=== PATIENT | female | born 1985 | race Caucasian/White ===

== ENCOUNTER 2021-03-23 12:59 | Emergency (ER) | payer OTHER, SELFPAY ==
[2021-03-23 13:09] VITALS: BP 110/76; PULSE 86; RESP 18; TEMP 36.7; O2SAT 98
--- NOTE | 2021-03-23 13:15 | DI.RAD_ITS ---
Exam(s) XR FINGER RT RING EXAM: XR FINGER RT RING CLINICAL HISTORY: slammed in car door TECHNIQUE: COMPARISON: No exams were available for comparison FINDINGS: Three views were obtained. There appears to be mild soft tissue swelling of the ring finger. No fra cture is identified. IMPRESSION: RADIATION DOSE DELIVERED: Total DLP
--- NOTE | 2021-03-23 13:15 | DI.RAD_ITS ---
Exam(s) XR TOE LT GREAT EXAM: XR TOE LT GREAT CLINICAL HISTORY: swollen and tender TECHNIQUE: COMPARISON: No exams were available for comparison FINDINGS: Three views were obtained. There appears to be soft tissue swelling of the great toe. No focal bony abnormality seen. No soft tissue calcification identified. IMPRESSION: RADIATION DOSE DELIVERED: Total DLP
--- NOTE | 2021-03-23 13:37 | ED.GENADUL_ITS ---
Discharge Plan Disposition Patient Disposition: HOME Condition: Good Discharge Details Clinical Impression: Cellulitis, Subungual hematoma Primary Care Provider: Yolanda,Local ED Provider: Kristina Dalal Home Meds and New Rx's Prescriptions: New cephalexin 500 mg capsule 500 mg PO Q6H 7 Days Qty: 28 RF: 0 Discharge Instructions Instructions: Cellulitis (ED), Hematoma (ED) Additional Instructions: Keep wound clean and dry SOAK several times a day in warm water Antibiotic until completed Return earlier if spreading redness, fever, worsening pain Discharge Data Discharge Date/Time-TO BE ENTERED AT DEPARTURE: 03/23/21 14:51 Medical Decision Making Patient appears well, afebrile nontoxic, wound care performed, dressing applied Unable to perform trephination as patient had 72 hours. Subungual hematoma No evidence of fracture on x-ray per radiology interpretation in my review Left great toe with laceration and surrounding erythema noted no crepitus sensation intact distally Medical Records Medical records reviewed: Yes I reviewed the patient's medical records. Lab Data Lab results reviewed: Yes I reviewed the patient's lab results. HPI General Mode of arrival: ambulatory . Date/Time Provider Initiated Documentation: 03/23/21 13:00 . Limitations to Documentation: no limitations . Information obtained by: patient . HPI Narrative: this 35-year-old female presents with right fourth digit pain. She slammed her finger in the car door on Friday of last week. She also has a laceration to her left great toe. She states this was acquired on Friday. She was walking up the day after swimming and accidentally caught her toe. She is here because the pain is worsened and she has some swelling. However despite wound care. She denies any fever or chills. She denies chance of . She denies any additional injuries. Related Data Home Medications Medication Instructions Recorded Confirmed cephalexin 500 mg PO Q6H 7 Days #28 cap 03/23/21 Previous Rx's Medication Instructions Recorded cephalexin 500 mg PO Q6H 7 Days #28 cap 03/23/21 Allergies Allergy/AdvReac Type Severity Reaction Status Date / Time amoxicillin Allergy Nausea Unverified 03/23/21 13:13 General Stated Complaint: Orthopedic JOESPH: 4 Review of Systems Narrative: Review of systems obtained x3 COUNTS INCLUDE 234 BEDS AT THE [facility] Medical History (Updated 03/23/21 @ 14:20 by SHARMAINE Doty) No active medical problems Surgical History (Updated 03/23/21 @ 13:13 by Kandace Johnson) No history of previous surgery Social History Smoking/Tobacco Use Status: Current every day Tobacco Type: cigarettes Smoking risk assessment performed?: Yes Alcohol Intake: current Alcohol Intake frequency: holidays/special occasions only Exam Const General: cooperative, healthy appearing and comfortable Extrem Other: Right fourth digit with subungual hematoma, swelling, tenderness, brisk capillary refill, sensation intact Left great toe with laceration, surrounding erythema and induration, no purulent drainage, no crepitus, no lymphangitis Capillary refill intact, sensation intact distally Course Vital Signs Vital signs: Vital Signs Temperature 36.7 C 03/23/21 13:09 Pulse 86 03/23/21 13:09 Respiratory Rate 18 03/23/21 13:09 Blood Pressure 110/76 03/23/21 13:09 Pulse Oximetry 98 03/23/21 13:09 Temperature 36.7 C 03/23/21 13:09 Temperature Source Skin 03/23/21 13:09 Pulse 86 03/23/21 13:09 Respiratory Rate 18 03/23/21 13:09 Respiratory Effort Non-Labored 03/23/21 13:13 Blood Pressure 110/76 03/23/21 13:09 Blood Pressure Position Sitting 03/23/21 13:09 Pulse Oximetry 98 03/23/21 13:09 Oxygen Delivery Method Room Air 03/23/21 13:09 Oxygen Flow Rate 0 03/23/21 13:09 Pain Level 0 03/23/21 13:09
== END 2021-03-23 14:51 | disposition home or self-care (01) ==
PROVIDERS: Emergency Provider Physician Assistant
DX: S67.194A Crushing injury of right ring finger, initial encounter (principal); S60.141A Contusion of right ring finger with damage to nail, initial encounter; W23.1XXA Caught, crushed, jammed, or pinched between stationary objects, initial encounter; L03.032 Cellulitis of left toe; S91.112A Laceration without foreign body of left great toe without damage to nail, initial encounter; X58.XXXA Exposure to other specified factors, initial encounter
CPT/HCPCS: 81025; 90471; 99284; 73140; 73660

== ENCOUNTER 2021-08-16 17:29 | Emergency (ER) | payer MEDICAID, SELFPAY ==
[2021-08-16 17:33] VITALS: BP 131/83; PULSE 89; RESP 18; TEMP 36.7; O2SAT 98
--- NOTE | 2021-08-16 17:43 | W.ED.GENAD ---
Discharge Plan Disposition Patient Disposition: HOME Condition: Stable Discharge Details Clinical Impression: Myofascial pain syndrome Primary Care Provider: Yolanda,Local ED Provider: Georgiana Luque Home Meds and New Rx's Prescriptions: Continued methocarbamol 500 mg Tablet 500 mg PO Q8-10H PRNRF: 0 Women's One Daily 18 mg iron-400 mcg-500 mg Ca Tablet 1 tab PO DAILY RF: 0 Discharge Instructions Instructions: Musculoskeletal Pain (ED) Additional Instructions: continue to ice and use pain medication as directed Referrals: Oswaldo Lam MD [ [facility] STAFF PHYSICIAN] - (call in am for follow up appointment) Medical Decision Making patient presents with c/o exacerbated chronic pain, seeking steroid injection. no trauma, rash or deformity noted. vitals stable. no imaging indicated, circulation intact with good pulses distally and color. will refer to orthopedics for further management. continue previous plan of care for pain management, no new prescriptions given HPI General Mode of arrival: ambulatory. Date/Time Provider Initiated Documentation: 08/16/21 17:31. Limitations to Documentation: no limitations. Information obtained by: patient. HPI Narrative: patient presents with c/o left shoulder myofascial pain syndrome. she reports she typically received cortisone injections but has moved from [place] and does not have access to her provider. she last took methocarbamol at noon and has been icing. denies any trauma, no numbness or tingling distally, good pulses and sensation. reports 3 trigger points. Related Data Home Medications Medication Instructions Recorded Confirmed Women's One Daily 1 tab PO DAILY 08/16/21 08/16/21 methocarbamol 500 mg PO Q8-10H PRN 08/16/21 08/16/21 Allergies Allergy/AdvReac Type Severity Reaction Status Date / Time amoxicillin Allergy Nausea Unverified 08/16/21 17:36 General Stated Complaint: Orthopedic JOESPH: 4 Review of Systems All systems reviewed & are unremarkable except as noted in HPI and below Musculoskeletal Musculoskeletal: Denies deformity and Reports arthralgias (right shoulder) Integumentary/Breasts Skin/Breast: Denies rash and Denies sores PFSH All Active Problems (Updated 08/16/21 @ 17:49 by Georgiana Luque, [employer]) Cellulitis (Acute) Subungual hematoma (Acute) Myofascial pain syndrome (Acute) Medical History (Updated 08/16/21 @ 17:49 by Georgiana Luque NP) No active medical problems Surgical History (Updated 03/23/21 @ 13:13 by Kandace Johnson) No history of previous surgery Social History Smoking/Tobacco Use Status: Current every day Tobacco Type: cigarettes Smoking risk assessment performed?: Yes Alcohol Intake: current Alcohol Intake frequency: holidays/special occasions only Drug use: Never Substance use type: does not use Do you feel safe at home: Yes Do you feel safe in your relationship?: Yes Exam Const General: cooperative, healthy appearing, comfortable and no acute distress Nutritional Appearance: average body habitus Orientation: alert, awake and oriented x3 HENMT Head: normal to inspection, normocephalic and atraumatic Extrem General: normal to inspection Right upper extremity: normal to inspection and full ROM Left upper extremity: normal to inspection and full ROM (passive with pain, holding arm at side with support of forearm) Course Vital Signs Vital signs: Vital Signs Temperature 36.7 C 08/16/21 17:33 Pulse 89 08/16/21 17:33 Respiratory Rate 18 08/16/21 17:33 Blood Pressure 131/83 08/16/21 17:33 Pulse Oximetry 98 08/16/21 17:33 Temperature 36.7 C 08/16/21 17:33 Temperature Source Temporal Artery Scan 08/16/21 17:33 Pulse 89 08/16/21 17:33 Respiratory Rate 18 08/16/21 17:33 Respiratory Effort Non-Labored 08/16/21 17:38 Blood Pressure 131/83 08/16/21 17:33 Blood Pressure Position Sitting 08/16/21 17:33 Pulse Oximetry 98 08/16/21 17:33 Oxygen Delivery Method Room Air 08/16/21 17:33 Oxygen Flow Rate 0 08/16/21 17:33 PAWSS Have you Been Recently Intoxicated or Drunk Within the Last 30 days?: No Have you Ever Experienced Previous Episodes of Alcohol Withdrawal?: No Have you ever Experienced Withdrawal Seizures?: No Have you ever Experienced Delirium Tremens(DT)s?: No Have you ever Experienced Blackouts?: No Have you ever Combined Alcohol with other Downers within the last 90 days?: No Have you ever Combined Alcohol with any other Substance of Abuse during the last 90 days?: No Positive Blood Alcohol level on Presentation? [PCS.BAL]: No Evidence of Increased Autonomic Activity (i.e. HR>120, tremor, sweating, agitation, nausea)?: No Result: 0
== END 2021-08-16 18:05 | disposition home or self-care (01) ==
PROVIDERS: Emergency Provider Nurse Practitioner Acute Care; Visit Provider Nurse Practitioner Acute Care
DX: M79.18 Myalgia, other site (principal); M25.512 Pain in left shoulder
CPT/HCPCS: 99281; 99282

== ENCOUNTER 2021-10-25 09:46 | Outpatient (REF) | payer MEDICAID, SELFPAY ==
[2021-10-26 15:44] LABS: COVID-19 RT-PCR UVMMC Result Negative (Negative)
== END 2021-10-25 09:47 | disposition home or self-care (01) ==
LOC: LBN 09:46
PROVIDERS: Visit Provider Physician Assistant
DX: Z20.822 Contact with and (suspected) exposure to COVID-19 (principal)
CPT/HCPCS: U0003

== ENCOUNTER 2022-03-12 01:56 | Outpatient (CLI) | payer MEDICAID, SELFPAY ==
[2022-03-12 12:37] LABS: Hemoglobin A1C 5.4 % (<5.7)
[2022-03-12 12:46] LABS: Calculated LDL 144 mg/dL (<100); Cholesterol 223 mg/dL (<200); HDL Cholesterol 38 mg/dL (40-60); TSH (W/Ref FT4) 2.36 uIU/mL (0.36-3.74); Triglyceride 205 mg/dL (<150)
== END 2022-03-12 01:57 | disposition home or self-care (01) ==
LOC: LOS 01:56
PROVIDERS: PCP Nurse Practitioner Family; Visit Provider Nurse Practitioner Family
DX: R63.5 Abnormal weight gain (principal); Z13.1 Encounter for screening for diabetes mellitus; Z13.220 Encounter for screening for lipoid disorders
CPT/HCPCS: 80061; 83036; 84443

== ENCOUNTER → 2022-04-02 00:52 | Outpatient (CLI) | payer MEDICAID, SELFPAY ==
--- NOTE | 2022-04-02 07:00 | DI.MRI_ITS ---
Exam(s) MR UPPER JOINT LT WO EXAM: MR UPPER JOINT LT WO CLINICAL HISTORY: left shoulder pain, not improved with PT,M25.512. TECHNIQUE: Multiplanar multisequence MRI was performed. COMPARISON: No exams were available for comparison FINDINGS: BONES: There is no fracture or contusion pattern. JOINTS: The acromioclavicular joint is normal. The glenohumeral joint is normal. TENDONS: Supraspinatus: There is thickening and intermediate signal in the supraspinatus tendon consistent wit h tendinosis. No evidence of tear is seen. Infraspinatus: Unremarkable. Subscapularis: Unremarkable. [place]: Unremarkable. Biceps and [place]: Unremarkable. MUSCLES: Unremarkable. GLENOID LABRUM: Unremarkable on this noncontrast examination. SOFT TISSUES: Unremarkable. LIGAMENTS: Unremarkable. OTHER: Subacromial and subdeltoid bursae are unremarkable. IMPRESSION: Supraspinatus tendinosis. No evidence of a rotator cuff tear. DATA REPOSITORY:
== END ==
PROVIDERS: PCP Nurse Practitioner Family; Visit Provider Family Medicine
DX: M25.512 Pain in left shoulder (principal); M65.812 Other synovitis and tenosynovitis, left shoulder
CPT/HCPCS: 73221

== ENCOUNTER 2022-04-09 09:51 | Outpatient (CLI) | payer MEDICAID, SELFPAY ==
--- NOTE | 2022-04-09 09:45 | DI.RAD_ITS ---
Exam(s) XR SHOULDER LT COMPLETE 2+V EXAM: XR SHOULDER LT COMPLETE 2+V CLINICAL HISTORY: LEFT SHOULDER PAIN. TECHNIQUE: 2D digital imaging was performed. Two views. COMPARISON: No exams were available for comparison FINDINGS: BONES: No acute fracture is present. No bony destructive lesion is seen. JOINTS: No dislocation present. SOFT TISSUE: Normal. IMPRESSION: Unremarkable radiographs of the left shoulder. DATA REPOSITORY: RADIATION DOSE DELIVERED:
== END 2022-04-09 09:52 | disposition home or self-care (01) ==
LOC: DIORS 09:51
PROVIDERS: PCP Nurse Practitioner Family; Referring Provider Nurse Practitioner Family; Visit Provider Student in an Organized Health Care Education/Training Program
DX: M25.512 Pain in left shoulder (principal)
CPT/HCPCS: 73030

== ENCOUNTER 2022-05-17 07:25 | Day surgery (SDC) | payer MEDICAID, SELFPAY ==
[2022-05-17] VITALS (9 sets, daily range): BP systolic 84–112; BP diastolic 59–83; PULSE 57–77; RESP 16–24; TEMP 36.4–36.7; O2SAT 94–98; BMI 29.8
--- NOTE | 2022-05-17 07:25 | W.ANESPRE ---
General Info Date of Service Date Performed: 05/17/22 Height: 5 ft 4 in Weight: 78.925 kg Body Mass Index (BMI): 29.8 Surgical Procedure: Operation Date: 05/17/22 09:10 Proposed Procedure Side Surgeon p Shoulder Arthroscopy w/Extensive Debridement, Biceps Tenodesis, Subacromial Decompression & Labral Repair Left Oswaldo Lam MD Meds Allergies and Home Medications Allergies Allergy/AdvReac Type Severity Reaction Status Date / Time amoxicillin Allergy Nausea Unverified 05/17/22 07:41 Home Medication Medication Instructions Recorded multivit-iron 18 mg-folic acid 400 1 tab PO DAILY 08/16/21 mcg-calcium 500 mg-minerals tablet (Women's One Daily) nicotine (polacrilex) 4 mg buccal 4 mg buccal Q4H PRN 02/19/22 lozenge (Nicorette) aspirin 81 mg tablet,delayed 81 mg PO DAILY Prevent blood clot 05/17/22 release 14 days #14 tabs naproxen 250 mg tablet 250 - 500 mg PO BID PRN #40 tabs 05/17/22 oxycodone 5 mg tablet 5 - 10 mg PO Q4H PRN moderate to 05/17/22 severe pain #18 tabs Current Visit Medications: Current Medications Generic Name Dose Route Start Last Admin Trade Name Freq PRN Reason Stop Dose Admin Ringer's Solution 1,000 mls @ 30 mls/hr 05/17/22 06:00 IV 05/17/22 16:00 INFUSION LUIS ALBERTO Cefazolin Sodium/Dextrose 2 gm in 50 mls @ 100 mls/hr 05/17/22 06:00 Ancef Duplex IVPB 05/17/22 23:59 PREOP LUIS ALBERTO IV Miscellaneous Supplies 1 each 05/17/22 06:00 Iv Access IV 05/17/22 23:59 DIRECTED LUIS ALBERTO Sodium Chloride 0 ml 05/17/22 06:00 Normal Saline Flush 10 Ml Syr IV 05/17/22 23:59 PRN PRN Sodium Chloride 0 ml 05/17/22 06:00 Normal Saline 10 Ml Vial IJ 05/17/22 23:59 DIRECTED PRN Sterile Water 0 ml 05/17/22 06:00 Water,Injection,Sterile 10 Ml Vial IJ 05/17/22 23:59 DIRECTED PRN PFSH Active Problems Active Problems: Problem Status Onset Code Chronic obstructive lung disease J44.9 Chronic fatigue syndrome R53.82 Insomnia disorder G47.00 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 Tobacco user Z72.0 Anxiety F41.9 Weight gain R63.5 Left shoulder pain M25.512 Dislocation of left shoulder joint S43.005A Myofascial pain syndrome M79.18 Superior labrum wsmblqov-li-mnzobrnem (SLAP) tear of left shoulder S43.432A Bursitis of left shoulder M75.52 Medical History Medical History (Updated 05/17/22 @ 07:39 by Rhina Gabriel) COVID-19 Idiopathic hypersomnia Loss of teeth due to extraction 2017 Surgical History Surgical History No history of previous surgery Tobacco Smoking/Tobacco Use Status: Current every day Tobacco Type: cigarettes Passive smoking exposure: Yes Second hand exposure: Yes Alcohol Alcohol Intake: current Alcohol intake frequency: a few times a month Alcohol type: beer, wine and hard liquor Substance Use Substance use: Occasionally Substance use type: marijuana Vital Signs and Lab Results Vital Signs Most Recent Vital Signs in EMR: Temp Pulse Resp BP Pulse Ox 36.7 C 74 16 108/74 98 05/17/22 07:42 05/17/22 07:42 05/17/22 07:42 05/17/22 07:42 05/17/22 07:42 Lab Results Blood Type / Crossmatch: No Data to Display Complete Blood Count: No Data to Display Complete Metabolic Panel: No Data to Display Liver Function Panel: No Data to Display Coagulation Panel: No Data to Display Cardiac Panel: No Data to Display Arterial Blood Gas: No Data to Display Venous Blood Gas: No Data to Display Pancreas Panel: No Data to Display Thyroid Panel: No Data to Display Infectious Disease: No Data to Display Blood Cultures: No Data to Display Toxicology Panel: No Data to Display Panel: No Data to Display Anesthesia Assessment and Plan Anesthesia History Personal History: No History of Anesthesia Complications Family History: No Family History of Anesthesia Complications Exercise Tolerance Exercise Tolerance: Metabolic Equivalents>4 Cardiac & Pulmonary Exam Cardiac Exam: Normal S1/S2 Heart Sounds Pulmonary Exam: Clear Bilateral Breath Sounds Implantable Cardiac Device Does patient have a Pacemaker or an ICD?: No Airway Exam Known Difficult Airway: No Mallampati Class: 4 Mouth Opening: Narrow (< 3cm) Thyromental Distance: Less than 3 cm Neck Range of Motion: Full ROM Neck Circumference: Normal Teeth Condition: Edentulous ASA Classification ASA Score: ASA 2 Emergency Case?: No NPO Status NPO Status: NPO Clears >2 hours, Solids >8 hours Status Status: Negative HCG Anesthesia Plan Resuscitation Status: Full Code Anesthesia Technique: General Anesthesia Airway Planned: Endotracheal Tube Pain Management: Surgeon and patient request nerve block Monitors Used: Standard Monitors Preoperative Comments:: 36 yo female for shoulder scope. Sig PMHx: COPD, smoker (cannabis/tobacco), occ EtOH, anxiety, idiopathic hypersomnia, discussed risks benifits of GA/ETT with left side interscalene block. Discussed risk of nerve injury (perm and temporary), she is willing to proceed.
[2022-05-17] MEDS: Lactated Ringers 1,000 ML 30 ML IV (10:25)
[2022-05-17] MEDS: ceFAZolin 2 GM/50 ML BAG IVPB (10:54)
--- NOTE | 2022-05-17 11:00 | W.PM.OP ---
Date of service: 05/17/22 Time of Service: 13:03 Operative Note Operative Note DATE OF PROCEDURE: 05/17/22 PRE-OP DIAGNOSIS: Left shoulder: 1. Labral tear 2. LHB tendinopathy 3. Bursitis 4. Rotator cuff tendinitis POST-OP DIAGNOSIS: same Left shoulder: 1. Labral tear 2. LHB tendinopathy with type 1 SLAP tear 3. Bursitis 4. Rotator cuff tendinitis with mild partial articular rotator cuff tearing PROCEDURE: Left shoulder: 1. Arthroscopic stabilization with labral repair, CPT# 52224: This involved arthroscopically suturing and reattaching the anterior inferior labrum to the glenoid rim 2. Arthroscopic biceps tenodesis, CPT# 29701. This involved arthroscopically suturing and reattaching the long head of the biceps tendon to the proximal humerus at the superior margin of the bicipital groove with a screw at the correct tension. 3. Extensive debridement, CPT# 75826. This involved using arthroscopic hand instruments, power instruments, and radiofrequency instruments to release the long head of the biceps tendon and debride areas of labral tearing, SLAP tear, synovitis, partial articular supraspinatus tearing, and chondromalacia about the anterior and inferior glenoid working within the glenohumeral joint anteriorly, superiorly and posteriorly. 4. Subacromial decompression, CPT# 07914. This involved using arthroscopic power instruments and a radiofrequency wand to complete a bursectomy. The assistant infant toddler teacher was medically required in order to help assist in techniques above, which require positioning the arm, holding the arthroscope, and manipulating multiple instruments and sutures at the same time. This cannot be done without the help of an experienced assistant infant toddler teacher. SURGEON: Oswaldo Lam CLINICAL TRANSPLANT COORDINATOR: Larisa Pollard ANESTHESIA TYPE: General LMA/ETT and Primary Nerve Block Refer to Anesthesia Record ESTIMATED BLOOD LOSS: 10 PATHOLOGY: none sent COMPLICATIONS: None Patient was transported to: PACU Patient's condition: stable Implants: Arthrex: 4.75mm SwiveLock x 1 and 2.9mm PushLock x 1 Indications: The patient was diagnosed with the above conditions and appropriately indicated for surgical intervention. Please see complete medical record for details. Findings: Exam under anesthesia: Moderately increased anterior glenohumeral translation without dislocation. No significant sulcus sign. Negative posterior instability. Full range of motion. Glenohumeral joint: Moderate rotator interval anterior and superior synovitis. Deficient anterior inferior labrum without associated glenoid chondral or bone loss. No significantly redundant anterior or inferior axillary capsular pouch. Mild partial articular supraspinatus rotator cuff tearing. Mild long head biceps injection bicipital groove. Type I biceps anchor superior labrum SLAP tear fraying. No posterior labral tear. Subacromial space: Moderate bursitis. Diffuse supraspinatus superficial bursal fraying without high-grade tearing. No significant undersurface acromial bone spur. Procedure Description: In the operating room, general anesthesia was induced. Bilateral shoulders were examined. The patient was positioned in the beachchair position. All bony prominences were well-padded. Preoperative antibiotics were administered. The shoulder was prepped and draped in the usual sterile fashion. The correct patient, procedure, and side of the procedure were all verified prior to incision. Starting through the posterior portal a standard complete diagnostic arthroscopy was performed of the glenohumeral joint including inspection of the long head of the biceps, anterior and superior labrum, subscapularis tendon, supraspinatus and infraspinatus tendons, and axillary recess. The glenoid and humeral head cartilage as well as the posterior labrum were inspected from an anterior viewing portal. Significant findings and interventions noted above including mild debrided with a radiofrequency ablator and mechanical shaver of partial articular rotator cuff tearing, superior labral SLAP tear fraying, rotator interval anterior and superior synovitis, and mild chondromalacia and redundant frayed tissue of the anterior and anterior-inferior labrum. Rigid cannula was inserted of the usual anterior portal localizing biceps tendon. An all-arthroscopic suprapectoral biceps tenodesis was performed through an anterior portal using a Loop N Tack method with a SutureTape FiberLink cinched around and through the tendon. The biceps was tenotomized from the labrum and fixated with a suture anchor at the superior margin of the bicipital groove. The safety stitch #2 FiberWire was then passed around the tendon stump, which was further secured with knotless [facility] arthroscopic knot. A second rigid cannula was inserted anterior inferiorly just above the subscapularis tarting the anterior-inferior glenoid. The the abnormal and deficient anteroinferior labral tissue was mobilized from the glenoid rim, which was prepared using rasp and curettes removing minimal bone but optimizing prepared surface for healing. The 45 degree to the right lasso was used through the low anterior cannula to incorporate appropriate amounts of AIG HL, capsule, and labral tissue and shuttle a suture tape FiberLink, which was secured with a luggage tag configuration. The eccentric guide was then used to drill for the push lock anchor at the appropriate level and margin of the glenoid. The repair suture was loaded on the anchor eyelet, which was successfully deployed with excellent fixation strength and evangelical of anterior inferior soft tissues for stability. Starting through the posterior portal, the arthroscope was directed into the subacromial space. A lateral 50 yard line lateral portal was omitted. A combination of power instruments and a radiofrequency ablator were used to debride bursitis anteriorly, posteriorly, and laterally. There was no undersurface acromial bone spurring for acromioplasty. The coracoacromial ligament was preserved. The bursectomy was completed viewing anteriorly and working from posteriorly and the rotator cuff was thoroughly inspected without any high?grade tearing. The shoulder was drained of arthroscopic fluid. All portal sites were copiously irrigated. These incisions were closed using 3-0 Monocryl in a buried fashion and then covered with Mastisol, Steri-Strips, Xeroform, dry gauze, and ABDs. The dressings were covered and secured with Medipore tape. The operative extremity was placed into a sling for immobilization. The patient awoke from anesthesia without complication and was transferred to the recovery room in a stable condition.
--- NOTE | 2022-05-17 11:18 | W.ANESNERVE ---
Nerve Block Single Injection Procedure Date and Time Date Performed: 05/17/22 Procedure Start: 10:41 Location Where Procedure Performed Procedure Location: Day Surgery Unit Reason Performed: Postoperative Analgesia Requesting Provider: Oswaldo Lam Timeout Performed Timeout Performed: Yes Monitoring Used ECG, Blood Pressure and SpO2 Sterility Sterility: Hand Hygiene, Surgical Cap, Surgical Mask, Sterile Gloves and Chlorhexidine Sedation Given During Procedure Sedation Given (Indicate Dose Given): Versed IV Dose:: 2 mg Patient Mental Status Patient Mental Status: Sedate with meaningful communication Nerve Block 1st Nerve Block: Laterality: Left Block Type: Interscalene Needle / Catheter Used: 100mm SonoPlex II Local Anesthetic Bolus (Indicate Dose Given): Lidocaine used for local infiltration of skin, Injected in 3-5ml increments after negative blood aspiration, Bupivacaine 0.5% Dose:: 14 mL and Exparel Dose:: 10 mL Additives (Indicate Dose Given): None Ultrasound: Sterile probe cover and gel used Ultrasound Image Saved?: Yes Nerve Stimulator: Supplement to Ultrasound use and No twitch or parasthesia noted < 0.5 mA (per pt, brief twitch in hand, needle reposited with resolution prior to injection. ) Paresthesia: None Procedure Tolerated: No Complications Procedure Outcome: Successful Performed By: Moises Leija
[2022-05-17] MEDS: EPINEPHrine 30 MG/30 ML VIAL (11:47)
--- NOTE | 2022-05-17 12:48 | W.PM.DSUDISC ---
Date of service: 05/17/22 Time of Service: 12:48 Discharge Plan Disposition Patient Disposition: HOME Condition: Good Discharge Details Reason For Visit: Left shoulder surgery Attending Provider: Oswaldo Lam Primary Care Provider: Chris Merritt Home Meds and New Rx's Prescriptions: New aspirin 81 mg tablet,delayed release (DR/EC) 81 mg PO DAILY 14 Days Qty: 14 0RF naproxen 250 mg tablet 250 - 500 mg PO BID PRNQty: 40 0RF Rx Instructions: take with a meal oxycodone 5 mg tablet 5 - 10 mg PO Q4H MDD 30 mg PRN (Reason: moderate to severe pain) Qty: 18 0RF Continued nicotine (polacrilex) [Nicorette] 4 mg lozenge 4 mg buccal Q4H PRN Women's One Daily 18 mg iron-400 mcg-500 mg Ca Tablet 1 tab PO DAILY Discharge Instructions Additional Instructions: Surgery: Left shoulder arthroscopy with labral repair, biceps tenodesis, extensive debridement, and subacromial decompression. Activity: For 6 weeks, you should keep your arm at your side in a neutral position at all times except for physical therapy. Do not try to lift or raise your arm using your own muscles. Avoid any weighted elbow flexion or resisted supination for 6 weeks. You should use the sling whenever you are out of the house. You may have to adjust the abduction pillow or remove it for comfort. At home it is best to remove the sling and rest the arm on a pillow at your side or support the operative side with your other hand. You may allow the arm to dangle at your side. A physical therapy prescription will be sent electronically to begin in about 3 weeks. Protocol- Weeks 0?3: Maximum 0 degrees external rotation and 90 degrees forward elevation Weeks 3?6: Maximum 30 degrees external rotation and 120 degrees forward elevation Weeks 6+: Gradually progress to full ROM Weeks 10+: Start dynamic scapular stabilization and rotator cuff strengthening Prescriptions: Aspirin 81 mg take 1 daily to prevent a blood clot for 2 weeks Naproxen 250 mg take 1-2 every 12 hours with a meal as needed for moderate pain Oxycodone 5 mg take 1-2 every 4-6 hours as needed for severe pain You may use phfe-iqd-axdwmbx Tylenol (acetaminophen) as needed for mild pain. These pain medications may be taken all at once or in different combinations as needed. Also, recommend Colace (docusate) as a stool softener as surgery and pain medicine cause constipation. You may try phkg-pgc-jnwikhf diphenhydramine (Benadryl) 25-50 mg nightly as a sleep aid Dressings: Remove shoulder bandage after 3 days. Leave the sticky Steri-Strips in place until they fall off or remove them after you shower. Cover the incisions with Band-Aids or leave them open to air. You may shower after 5 days. Follow-up: 10-[address] Lam You may take off the leg compression stockings this evening at home. You may also leave them on a few days longer if you have a history of leg swelling or edema. Let us know right away if you develop any redness, drainage, fevers, chest pain, or trouble breathing. Do not drink alcohol or drive for at least 24 hours after anesthesia. Please call the office during business hours with any questions or concerns.
--- NOTE | 2022-05-17 13:15 | W.ANESPOSTOP ---
Postoperative Evaluation Date, Time and Location Date Performed: 05/17/22 Time Performed: 13:16 Patient Location: Day Surgery Unit Vital Signs Most Recent Imported Vital Signs: Most Recent Vital Signs Temp Pulse Resp BP Pulse Ox 36.4 C L 70 24 92/70 L 97 05/17/22 13:06 05/17/22 13:06 05/17/22 13:06 05/17/22 13:06 05/17/22 13:06 Pain Score Most Recent Pain Score: Most Recent Pain Score Pain Level 0 05/17/22 10:25 Assessment Mental Status: Awake (Alert & Oriented to Patient Baseline) Airway and Respiratory Function: Patent airway with normal (patient baseline) respiratory exam Cardiovascular Function: Hemodynamically Stable Hydration Status: Adequately Hydrated Nausea & Vomiting: No Nausea or Vomiting Pain: Pain is tolerable per patient Peripheral Nerve Block: Regional nerve block not resolved at time of post operative discharge
== END 2022-05-17 14:28 | disposition home or self-care (01) ==
PROVIDERS: PCP Nurse Practitioner Family; Visit Provider Student in an Organized Health Care Education/Training Program
PROC: (CPT 29805; principal; 2022-05-17 09:00)
DX: S43.432A Superior glenoid labrum lesion of left shoulder, initial encounter (principal); M79.18 Myalgia, other site; F17.210 Nicotine dependence, cigarettes, uncomplicated; J44.9 Chronic obstructive pulmonary disease, unspecified; X58.XXXA Exposure to other specified factors, initial encounter
CPT/HCPCS: 29806; 29828; 29826; 29823; 76942; 81025; J0690; J1100; J1885; J2250; J2370; J2405; J2704

== ENCOUNTER 2022-06-28 11:26 | Emergency (ER) | payer MEDICAID, SELFPAY ==
[2022-06-28 11:32] VITALS: BP 106/80; PULSE 78; RESP 18; TEMP 36.7; O2SAT 99
[2022-06-28 12:16] VITALS: BP 106/73; PULSE 74; TEMP 36.4; O2SAT 99
--- NOTE | 2022-06-28 13:30 | DI.US_ITS ---
Exam(s) US UPPER EXTREMITY VENOUS LT EXAM: US UPPER EXTREMITY VENOUS LT CLINICAL HISTORY: pain/swelling. TECHNIQUE: Ultrasound examination of the left upper extremity venous system(s) is performed using gr ayscale, color-flow, and spectral Doppler analysis. COMPARISON: No exams were available for comparison FINDINGS: The left internal jugular, axillary, subclavian, cephalic, basilic, brachial, radial, and ulnar veins are patent without evidence of thrombosis. IMPRESSION: No DVT. DATA REPOSITORY:
--- NOTE | 2022-06-28 13:46 | W.ED.GENAD ---
Discharge Plan Discharge Details Chief Complaint: Orthopedic Primary Care Provider: Chris Merritt ED Provider: John Paul Vega Home Meds and New Rx's Prescriptions: No Action Women's One Daily 18 mg iron-400 mcg-500 mg Ca Tablet 1 tab PO DAILY Medical Decision Making 37-year-old female who reports 10-year history of chronic left shoulder pain, she is right-hand dominant, left shoulder surgery back in April, has been going to physical therapy and overall things have been going well. States that late last night she developed severe left shoulder pain, she feels as though there is something wrong with her surgery. She states the pain is into her upper arm as well associated with swelling. She denies chest pain or shortness of breath. She denies numbness, tingling, weakness. Patient states that her last physical therapy appointment was on Friday and things seem to be go fairly normal at that time but did feel a little creaking in her shoulder at that time. Patient states that zcrl-gem-wfvjfzl medication not helping with her discomfort. Given her recent surgery, immobilization, certainly concern for DVT. She does not have any signs of infection, septic joint, etc. No recent trauma or injury, x-ray likely of little value. Plan is to obtain ultrasound of the left upper extremity to rule out DVT. We will provide IM Toradol. Unable to obtain ultrasound until 1529. Patient states that she does not want to wait that long and would like to leave. I explained to her that given my concern for DVT I could not simply discharge her and she would be leaving AGAINST MEDICAL ADVICE. She was agreeable to the IM Toradol and will await the ultrasound. This documentation was generated using [employer] dictation system, please disregard any oddities of phrase or misspellings. Medical Records Medical records reviewed: Yes I reviewed the patient's medical records. Sign Out Yes HPI General Mode of arrival: ambulatory. Date/Time Provider Initiated Documentation: 06/28/22 11:53. Limitations to Documentation: no limitations. Information obtained by: patient and family. History of Present Illness 37 year old F presents to the emergency department with the chief complaint of L shoulder pain, described as severe, with intensity rated at 8. Quality is described as aching, and is localized to the left and upper extremity. Patient extremity (left ). Patient started experiencing this hour(s) (14) and it has been constant. No relieving factors improve symptom(s), No exacerbating factors reported . Patient notes no other symptoms.. Patient did receive the following treatments prior to arrival, none Related Data Home Medications Medication Instructions Recorded Confirmed multivit-iron 18 mg-folic acid 400 1 tab PO DAILY 08/16/21 06/28/22 mcg-calcium 500 mg-minerals tablet (Women's One Daily) Allergies Allergy/AdvReac Type Severity Reaction Status Date / Time amoxicillin AdvReac Nausea Unverified 06/28/22 13:48 General Stated Complaint: Orthopedic JOESPH: 4 Review of Systems Constitutional Constitutional: Denies fever(s) and Denies weakness Cardiovascular Cardiovascular: Denies chest pain and Denies dyspnea Respiratory Respiratory: Denies dyspnea Musculoskeletal Musculoskeletal: Reports arthralgias, Denies numbness, Reports stiffness and Denies tingling Integumentary/Breasts Skin/Breast: Denies rash Neurologic Neurologic: Denies numbness, Denies tingling and Denies weakness PFSH All Active Problems Chronic obstructive lung disease (Chronic) Chronic fatigue syndrome (Acute) Insomnia disorder (Acute) Mild recurrent major depression (Acute) Tobacco user (Acute) less than pack/day Anxiety (Chronic) Weight gain (Acute) Left shoulder pain (Acute) Dislocation of left shoulder joint (Acute) Myofascial pain syndrome (Acute) Superior labrum igztvasj-fw-dpnkbpeld (SLAP) tear of left shoulder (Acute) Bursitis of left shoulder (Acute) Medical History COVID-19 Idiopathic hypersomnia Loss of teeth due to extraction 2018 Surgical History History of arthroscopy of left shoulder (05/17/22) No history of previous surgery Family History Mother No problems noted. Father , 60 No problems noted. Sister No problems noted. Son No problems noted. Son No problems noted. Social History Smoking/Tobacco Use Status: Current every day Tobacco Type: cigarettes Tobacco: How many years used: 20 Quit status: considering quitting Second Hand Exposure: Yes Smoking risk assessment performed?: Yes Alcohol Intake: current Alcohol Intake frequency: a few times a month Alcohol type: beer, wine and hard liquor Drug use: Daily Substance use type: marijuana Caregiver/Support person: No Household members: children and friend(s) Communication Needs: None Do you need help understanding health information?: Rarely Pets and animals: Yes Pets and animals: cat(s), dog(s), fish, snake(s) and other Sexually active: Yes Do you think of yourself as: straight/heterosexual Current gender identity: female What is your relationship status?: How often do you talk on the phone with friends or family?: once per week How often do you get together with friends or relatives?: never Do you belong to any clubs or organized social groups?: no Panel score (0-1 are the most socially isolated patients): 0 What type of physical activity do you participate in: walking Duration: 15-30 minutes/day Frequency: 3-4 times per week Lori/Pentecostalism: Kristel Special lori needs: No Seatbelt use: always Helmet use: Yes Helmet use: always Drive intox or ride w/intox special education bus driver: No Additional Social history: unable to assess privately Exam Const General: cooperative, healthy appearing, no acute distress and other (Slightly uncomfortable) Orientation: alert and awake [facility] Head: normal to inspection, normocephalic and atraumatic Eyes Conjunctivae: conjunctivae normal Neck Neck: normal visual inspection, full ROM, trachea midline and supple Resp Effort & Inspection: normal respiratory effort and able to speak in complete sentences Auscultation: clear to auscultation bilaterally Cardio Rate: regular rate Rhythm: regular rhythm Back/Spine/Pelvis Back: No back tenderness Skin General skin exam: no rashes or lesions noted Neuro General: patient alert, patient awake, moves all extremities and no focal motor deficits Cognition: normal cognition Speech: speech normal Gait: normal gait Motor: muscle tone normal throughout Sensory Exam: no sensory deficits noted Extrem General: capillary refill normal Other: Left shoulder normal inspection. Range of motion is at her baseline status post surgery. Limited range of motion in all directions. Normal radial pulse and capillary refill. There is no warmth or erythema. There is diffuse discomfort across the anterior aspect of the shoulder down into the bicep. There is mild swelling across the bicep and forearm. Neuro, vascular, tendon intact. Psych Appearance: grossly normal Mental Status: mental status grossly normal Course Vital Signs Vital signs: Vital Signs Temperature 36.7 C 06/28/22 11:32 Pulse 78 06/28/22 11:32 Respiratory Rate 18 06/28/22 11:32 Blood Pressure 106/80 06/28/22 11:32 Pulse Oximetry 99 06/28/22 11:32 Temperature 36.4 C L 06/28/22 12:16 Temperature Source Tympanic 06/28/22 12:16 Pulse 74 06/28/22 12:16 Respiratory Rate 18 06/28/22 11:32 Respiratory Effort Non-Labored 06/28/22 11:34 Blood Pressure 106/73 06/28/22 12:16 Blood Pressure Position Sitting 06/28/22 11:32 Pulse Oximetry 99 06/28/22 12:16 Oxygen Delivery Method Room Air 06/28/22 12:16 Oxygen Flow Rate 0 06/28/22 12:16 Pain Level 7 06/28/22 12:16 PAWSS Have you Been Recently Intoxicated or Drunk Within the Last 30 days?: No Have you Ever Experienced Previous Episodes of Alcohol Withdrawal?: No Have you ever Experienced Withdrawal Seizures?: No Have you ever Experienced Delirium Tremens(DT)s?: No Have you ever undergone Alcohol Rehabilitation Treatment (i.e, inpt ot outpatient treatment programs)?: No Have you ever Experienced Blackouts?: No Have you ever Combined Alcohol with other Downers within the last 90 days?: No Have you ever Combined Alcohol with any other Substance of Abuse during the last 90 days?: No Positive Blood Alcohol level on Presentation? [PCS.BAL]: No Evidence of Increased Autonomic Activity (i.e. HR>120, tremor, sweating, agitation, nausea)?: No Result: 0
[2022-06-28] MEDS: Ketorolac 60 MG/2 ML VIAL IM (14:15)
--- NOTE | 2022-06-28 15:39 | ED.PROG_ITS ---
Date of service: 06/28/22 Time of Service: 15:39 Medical Decision Making 1539: Care assumed from provider John Paul SCHMID, please see his HPI and physical, at this time, awaiting US upper extremity to rule out DVT. Ultrasound of her extremity is negative for anything acute. Patient was given 4 oxycodone to go and instructed on use. Instructed to follow-up with surgeon and/or PCP for any further pain. This text was generated using [employer] dictation system, please disregard any oddities of phrase or misspellings. We will Sign Out Yes Sign Out Sign Out Data: Sign Out Comment: Awaiting ultrasound of the left upper extremity for concern of DVT given recent surgery and immobility. Patient given IM Toradol. If negative then orthopedic follow-up. Patient scheduled to be seen on July 10 but is concerned about waiting that long before evaluation. Last updated by John Paul Vega PA at 06/28/22 15:05 Discharge Plan Disposition Patient Disposition: Home Condition: Stable Discharge Details Clinical Impression: Arm pain Primary Care Provider: Chris Merritt ED Provider: Jennifer Da Silva Home Meds and New Rx's Prescriptions: No Action Women's One Daily 18 mg iron-400 mcg-500 mg Ca Tablet 1 tab PO DAILY Discharge Instructions Instructions: Arm Pain (ED) Additional Instructions: The ultrasound shows no evidence of blood clots. PLease take the pain medication as directed with food and follow up with the surgeon. Please follow up with PCP or Surgeon in 3-5 days, return to ER for any SOB, chest pain, Fainting or concerns. Referrals: Chris Merritt, DIRECTOR OF MEDICAL REVIEW [Primary Care Provider] - 3 days Discharge Data Discharge Date/Time-TO BE ENTERED AT DEPARTURE: 06/28/22 16:03
== END 2022-06-28 16:03 | disposition home or self-care (01) ==
PROVIDERS: Emergency Provider Registered Nurse Emergency; PCP Nurse Practitioner Family
DX: M79.602 Pain in left arm (principal); G89.29 Other chronic pain
CPT/HCPCS: 96372; 99284; 93971; 99283; J1885

== ENCOUNTER 2022-10-30 07:37 | Outpatient (CLI) | payer MEDICAID, SELFPAY ==
[2022-10-30 07:47] VITALS: BP 107/78; PULSE 74; RESP 20; TEMP 36.7; O2SAT 98
--- NOTE | 2022-10-30 08:44 | PDOC.PAIN ---
Date of service: 10/30/22 Time of Service: 08:51 Pain Clinic Procedure Note Procedure Note Procedure Note: ULTRASOUND GUIDED LEFT Trapezius, Rhomboid, Infraspinatous, Supraspinatous, Levator Scapulae, and Splenius Cervicis muscle trigger point injections Pre-Procedural Evaluation: Alcira Saldana has been referred to the [facility] for an Ultrasound Guided Left Trapezius, Rhomboid, Infraspinatous, Supraspinatous, Levator Scapulae, and Splenius Cervicis muscle trigger point injections for a chief complaint of left upper midback and neck pain. Pre-procedure Pain Score: 4/10 Patient was interviewed and the medical record reviewed. There were no medical, pharmacologic, radiographic, or other structural contraindications to preforming an ultrasound guided injection. Risks and expected side effects as well as potential benefits of the procedure were reviewed. The patient consent form was signed and witnessed. Standard time-out procedure was performed. The use of direct ultrasound visualization of the needle (rather than a non-guided injection) was required to increase patient safety by excluding inadvertent intramuscular, intratendinous, or intraneural needle placement and minimizing bleeding by avoiding osteochondral or vascular injury from the needle. Additionally, the increased accuracy of placement may increase clinical effectiveness and will allow higher diagnostic specificity when evaluating effectiveness of this injection. Procedure Description: The patient was placed in the prone position and automated blood pressure cuff and pulse oximeter applied for monitoring during the procedure and recorded in the medical record. Pre-injection ultrasound scanning of the area of interest was performed using linear transducer, identifying relevant anatomy, landmarks, and neurovascular structures allowing for optimal needle path. The site was then prepared in the usual sterile fashion, using thorough Chlorhexadine preparation of the skin and sterile draping. The same ultrasound transducer was then passed into the sterile field using sterile probe cover and sterile ultrasound gel. The injection target was again visualized. A 25G 1.5 needle was placed under live ultrasound guidance, using an in-plane approach, to the target area. After visualization of the needle tip at the target area, 1 cc of 2% Lidocaine was injected and a total of 1 cc of Depomedrol (40 mg/cc) was injected and this was flushed with 1 cc of 2% Lidocaine. This was delivered after negative aspiration for blood. Ultrasound images were captured and stored for documentation purposes. Post-procedure Pain Score: 2/10 Complications: None Comments: This procedure can be completed up to 4 times per year if she received consistent pain relief and/or functional improvement. Vital signs were stable throughout the procedure and were as recorded in the docflowsheet by the nursing staff. Follow up plans and appointments were discussed with the patient.Post procedure instruction was given as documented in nursing documentation and having met discharge criteria, they were discharged from the [facility]. COMMENTS: She did very well with this procedure. Her partner was present (per her request), during the entire procedure. Yury Baig DO, MPH [facility]Pain Management [facility]
[2022-10-30 08:46] VITALS: PULSE 70; O2SAT 99
[2022-10-30] MEDS: Lidocaine 2% Pres-Free 5 ML VIAL IJ (08:47)
[2022-10-30] MEDS: methylPREDNISolone ACETATE 40 MG/ML VIAL IJ (08:47)
== END 2022-10-30 07:38 | disposition home or self-care (01) ==
LOC: PC 07:38
PROVIDERS: PCP Nurse Practitioner Family; Visit Provider Preventive Medicine Occupational Medicine
DX: M54.2 Cervicalgia (principal); M54.6 Pain in thoracic spine
CPT/HCPCS: 20553; J1030

== ENCOUNTER 2022-11-18 00:38 | Outpatient (CLI) | payer MEDICAID, SELFPAY ==
--- NOTE | 2022-11-18 | DI.US_ITS ---
Exam(s) US PELVIS TRANSVAGINAL EXAM: US PELVIS TRANSVAGINAL CLINICAL HISTORY: ABNL UTERINE BLEEDING N93.9. TECHNIQUE: Transabdominal and transvaginal pelvic ultrasound was performed using standard protocol. COMPARISON: No priors for comparison. FINDINGS: UTERUS: Position: Anteverted. Size: 7.5 long by 3.7 AP by 4.8 transverse cm Endometrium: 0.6 cm. Normal for patient's menstrual status. There is a 1.2 x 0.5 x 1.1 cm round hypoe choic area in the fundal region of the endometrial stripe. This may represent a polyp. Myometrium: Unremarkable. Cervix: Unremarkable. OVARIES: Right: 2.1 x 2.1 x 1.6 cm Cyst or mass: No suspicious cystic or solid masses. Left: 2.7 x 2.4 x 1.9 cm Cyst or mass: No suspicious cystic or solid masses. There is a 2.1 x 1.6 x 2.0 cm dominant left ovar connie follicle. DOPPLER: Color: Symmetric and uniform flow to both ovaries. CUL-DE-SAC: Free fluid: None. Other: None. IMPRESSION: 1. Normal appearing uterus. 2. 1.2 x 0.5 x 1.1 cm hyperechoic round area within the fundal endometrium which may represent an end ometrial polyp. 3. Unremarkable bilateral ovaries. DATA REPOSITORY:
== END 2022-11-18 00:58 ==
LOC: DI 00:38
PROVIDERS: PCP Nurse Practitioner Family; Visit Provider Advanced Practice Midwife
DX: N93.9 Abnormal uterine and vaginal bleeding, unspecified (principal)
CPT/HCPCS: 76830; 76856

== ENCOUNTER 2023-01-20 03:01 | Outpatient (CLI) | payer MEDICAID, SELFPAY ==
[2023-01-20 08:10] LABS: Abs Immature Grans 0.03 10^3/uL (0.0-0.06); Absolute Basophil Count 0.04 10^3/uL (0.0-0.2); Absolute Eosinophil Count 0.25 10^3/uL (0.0-0.7); Absolute Lymphocyte Count 3.22 10^3/uL (1.2-3.4); Absolute Monocyte Count 0.45 10^3/uL (0.1-0.8); Absolute Neutrophil Count 4.67 10^3/uL (1.2-6.7); Basophils % 0.5; Eosinophils % 2.9; HCT 41.2 % (36.0-46.0); HGB 13.7 g/dL (11.2-15.7); Immature Grans % 0.3; Lymphocytes % 37.2; MCH 30.9 pg (27.0-33.0); MCHC 33.3 % (32.0-36.0); MCV 93 fL (80-95); MPV 9.1 fL (8.0-11.0); Monocytes % 5.2; Neutrophils % 53.9; Platelet Count 357 10^3/uL (130-400); RBC 4.44 10^6/uL (3.93-5.22); RDW 13.5 % (11.7-14.6); RDW-SD 46.3 fL; WBC 8.66 10^3/uL (4.4-10.8)
== END 2023-01-20 03:02 | disposition home or self-care (01) ==
LOC: LBO 03:01
PROVIDERS: PCP Nurse Practitioner Family; Visit Provider Obstetrics & Gynecology
DX: Z01.818 Encounter for other preprocedural examination (principal)
CPT/HCPCS: 36415; 86850; 86900; 86901; 85025

== ENCOUNTER 2023-01-22 06:02 | Day surgery (SDC) | payer MEDICAID, SELFPAY ==
[2023-01-22 06:15] VITALS: BP 110/78; PULSE 76; RESP 18; TEMP 36.5; O2SAT 99
--- NOTE | 2023-01-22 06:56 | W.ANESPRE ---
General Info Date of Service Date Performed: 01/22/23 Height: 5 ft 4 in Weight: 76.5 kg Body Mass Index (BMI): 28.9 Surgical Procedure: Operation Date: 01/22/23 07:40 Proposed Procedure Side Surgeon p Dilation & Curettage with Hysteroscopy, Myosure Joan Rossi DO Meds Allergies and Home Medications Allergies Allergy/AdvReac Type Severity Reaction Status Date / Time Penicillins AdvReac Intermediate Nausea Unverified 01/22/23 06:17 amoxicillin AdvReac Nausea Verified 01/07/23 13:04 Home Medication Medication Instructions Recorded multivit-iron 18 mg-folic acid 400 1 tab PO DAILY 08/16/21 mcg-calcium 500 mg-minerals tablet (Women's One Daily) ibuprofen 200 mg capsule 200 mg PO Q6H PRN 08/07/22 medroxyprogesterone 150 mg/mL 150 mg IM Q12W #1 mL 12/19/22 intramuscular syringe (Depo-Provera) Current Visit Medications: Current Medications Generic Name Dose Route Start Last Admin Trade Name Hemal PRN Reason Stop Dose Admin Ringer's Solution 1,000 mls @ 125 mls/hr 01/22/23 06:00 IV 02/20/23 23:59 INFUSION LUIS ALBERTO IV Miscellaneous Supplies 1 each 01/22/23 06:00 Iv Access IV 02/20/23 23:59 DIRECTED LUIS ALBERTO Sodium Chloride 0 ml 01/22/23 06:00 Normal Saline Flush 10 Ml Syr IV 02/20/23 23:59 PRN PRN Sodium Chloride 0 ml 01/22/23 06:00 Normal Saline 10 Ml Vial IJ 02/20/23 23:59 DIRECTED PRN Sterile Water 0 ml 01/22/23 06:00 Water,Injection,Sterile 10 Ml Vial IJ 02/20/23 23:59 DIRECTED PRN PFSH Active Problems Active Problems: Problem Status Onset Code Muscle pain M79.10 Muscle pain, myofascial M79.18 Adhesive capsulitis of left shoulder M75.02 Chronic obstructive lung disease J44.9 Chronic fatigue syndrome R53.82 Insomnia disorder G47.00 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 Tobacco user Z72.0 Anxiety F41.9 Weight gain R63.5 Left shoulder pain M25.512 Dislocation of left shoulder joint S43.005A Myofascial pain syndrome M79.18 Superior labrum sczjevwj-sn-eregafjaq (SLAP) tear of left shoulder S43.432A Bursitis of left shoulder M75.52 Medical History Medical History COVID-19 Idiopathic hypersomnia Loss of teeth due to extraction 2017 Surgical History Surgical History History of arthroscopy of left shoulder (05/17/22) No history of previous surgery Tobacco Smoking/Tobacco Use Status: Current every day Tobacco Type: cigarettes Passive smoking exposure: Yes Second hand exposure: Yes Alcohol Alcohol Intake: current Alcohol intake frequency: a few times a month Alcohol type: beer, wine and hard liquor Substance Use Substance use: Daily Substance use type: marijuana Prental History History 5 Para 2 Hx # Term Pregnancies 2 Multiple births Hx # Pregnancies Ectopic pregnancies AB induced Hx Number of Living Children 2 AB spontaneous Vital Signs and Lab Results Vital Signs Most Recent Vital Signs in EMR: Most Recent Vital Signs Temp Pulse Resp BP Pulse Ox 36.5 C 76 18 110/78 99 01/22/23 06:15 01/22/23 06:15 01/22/23 06:15 01/22/23 06:15 01/22/23 06:15 Lab Results Blood Type / Crossmatch: Patient ABO/Rh O Positive 01/20/23 Antibody Screen NEGATIVE 01/20/23 Complete Blood Count: White Blood Count 8.66 10^3/uL (4.4-10.8) 01/20/23 07:55 Red Blood Count 4.44 10^6/uL (3.93-5.22) 01/20/23 07:55 Hemoglobin 13.7 g/dL (11.2-15.7) 01/20/23 07:55 Hematocrit 41.2 % (36.0-46.0) 01/20/23 07:55 Platelet Count 357 10^3/uL (130-400) 01/20/23 07:55 Complete Metabolic Panel: No Data to Display Liver Function Panel: No Data to Display Coagulation Panel: No Data to Display Cardiac Panel: No Data to Display Arterial Blood Gas: No Data to Display Venous Blood Gas: No Data to Display Pancreas Panel: No Data to Display Thyroid Panel: No Data to Display Infectious Disease: No Data to Display Blood Cultures: No Data to Display Toxicology Panel: No Data to Display Panel: No Data to Display Anesthesia Assessment and Plan Anesthesia History Personal History: No History of Anesthesia Complications Family History: No Family History of Anesthesia Complications Exercise Tolerance Exercise Tolerance: Metabolic Equivalents>4 Pertinent Negatives Pertinent Negatives: No Symptoms of GERD, No Major Cardiovascular Symptoms or Complaints, No Major Pulmonary Symptoms or Complaints and No History of CVA/TIA Cardiac & Pulmonary Exam Cardiac Exam: Normal S1/S2 Heart Sounds Pulmonary Exam: Clear Bilateral Breath Sounds Implantable Cardiac Device Does patient have a Pacemaker or an ICD?: No Airway Exam Known Difficult Airway: No Mallampati Class: 2 Mouth Opening: Normal (> 3cm) Thyromental Distance: Less than 3 cm Neck Range of Motion: Full ROM Neck Circumference: Normal Teeth Condition: Edentulous ASA Classification ASA Score: ASA 2 Emergency Case?: No NPO Status NPO Status: NPO Clears >2 hours, Solids >8 hours Status Status: Negative HCG Anesthesia Plan Resuscitation Status: Full Code Anesthesia Technique: General Anesthesia Airway Planned: Natural Airway Monitors Used: Standard Monitors
[2023-01-22 06:58] VITALS: BMI 28.9
[2023-01-22] MEDS: Lactated Ringers 1,000 ML 125 ML IV (07:03)
--- NOTE | 2023-01-22 08:12 | W.PM.OP ---
Date of service: 01/22/23 Time of Service: 08:12 Operative Note Operative Note DATE OF PROCEDURE: 01/22/23 PRE-OP DIAGNOSIS: Suspect endometrial polyp POST-OP DIAGNOSIS: same PROCEDURE: Hysteroscopy, fractional dilation and curettage, MyoSure with removal of endometrial polyp SURGEON: Joan Rossi ANESTHESIA TYPE: General:No Airway Refer to Anesthesia Record ESTIMATED BLOOD LOSS: 5 PATHOLOGY: other (1. Endocervical curettage 2. Endometrial curettage 3. Endometrial polyp) COMPLICATIONS: None Patient was transported to: same day Patient's condition: stable Indications: Endometrial thickening, suspect polyp Findings: 4 mm fundal endometrial polyp, smooth, regular endocervix and endometrium Procedure Description: After full informed consent was obtained and negative status verified, patient was taken the operating suite with an IV running. She was placed in the modified dorsolithotomy position in yellowfin stirrups and prepped and draped in the usual sterile fashion. She had pneumatic compression stockings for DVT prophylaxis and no antibiotic prophylaxis was warranted. Her bladder had been previously emptied. Exam under anesthesia revealed a uterus that was mobile, midline, without adnexal masses. Speculum was inserted into the vaginal vault and the cervical os identified. Single-tooth tenaculum used to grasp the anterior lip of the cervix and cervix dilated to the point that I 4 mm hysteroscope could be passed with ease. With normal saline instillation the entire endometrial cavity was inspected. Endocervix and endometrial lining were smooth and regular. Both tubal ostia were visualized. There was noted to be a 4 mm polypoid structure at the uterine fundus. In light of this, MyoSure device was inserted through the hysteroscope and endometrial polyp was removed. The base was hemostatic. At this point, hysteroscope portion of the procedure was terminated. Fractional dilation and curettage was performed first with collection of endocervical curettings, followed by endometrial curettings. Single-tooth tenaculum was then removed and one puncture site was cauterized with silver nitrate for hemostasis. All instruments were then removed from the vaginal vault. Total fluid deficit was 140 mL of normal saline. She was returned to the dorsal supine position and awoke from anesthesia with ease. EBL: 5 mL Pathology: 1. Endocervical curetting 2. Endometrial curettings 3. Endometrial polyp Complications: None apparent Findings: Smooth regular endocervical and endometrial cavity. Small fundal fibroid removed via MyoSure. Fluids: 400 mL of crystalloid per anesthesia with 140 mL of normal saline fluid deficit from hysteroscope portion of the procedure.
[2023-01-22 08:13] VITALS: BP 95/64; PULSE 66; RESP 20; TEMP 36.7; O2SAT 95
--- NOTE | 2023-01-22 08:36 | W.ANESPOSTOP ---
Postoperative Evaluation Date, Time and Location Date Performed: 01/22/23 Time Performed: 08:36 Patient Location: Day Surgery Unit Vital Signs Most Recent Imported Vital Signs: Most Recent Vital Signs Temp Pulse Resp BP Pulse Ox 36.7 C 66 20 95/64 L 95 01/22/23 08:13 01/22/23 08:13 01/22/23 08:13 01/22/23 08:13 01/22/23 08:13 Assessment Mental Status: Awake (Alert & Oriented to Patient Baseline) Airway and Respiratory Function: Patent airway with normal (patient baseline) respiratory exam Cardiovascular Function: Hemodynamically Stable Hydration Status: Adequately Hydrated Nausea & Vomiting: No Nausea or Vomiting Pain: Pain is tolerable per patient Peripheral Nerve Block: Patient did not receive a nerve block
[2023-01-22 08:48] VITALS: BP 103/72; PULSE 58; RESP 16; O2SAT 98
--- NOTE | 2023-01-22 09:00 | ENDO_PTH ---
PATIENT: Alcira Saldana LOC: [facility] U#:[id number] AGE/SX: 37/F ROOM: RE01/22/[address]: Joan Rossi DO : 1985 BED: DIS: 01/22/2023 SPEC #: [id number] RECD: 01/22/23 12:28 STATUS: CAL RE #: [id number] DENISE: 01/22/23 09:[address]: Joan Rossi DEPT: Surgical Specimen RECD BY: Kristina Mccartney ENTERED: 01/22/23 12:29 SP TYPE: Endo OTHR DR: Chris Merritt, [employer] Tissues: 1 - ENDOCERVICAL BX/CURRETTE 2 - ENDOMETRIUM BX/CURRETTE 3 - ENDOMETRIUM BX/CURRETTE Procedures: GROSS AND MICRO LEVEL 4 Comments: [id number]
== END 2023-01-22 09:48 | disposition home or self-care (01) ==
PROVIDERS: PCP Nurse Practitioner Family; Visit Provider Obstetrics & Gynecology
PROC: 0UDB8ZZ Extraction of Endometrium, Via Natural or Artificial Opening Endoscopic (ICD-10-PCS; CPT 58558; principal; 2023-01-22 07:30)
DX: N84.0 Polyp of corpus uteri (principal); F17.210 Nicotine dependence, cigarettes, uncomplicated; F41.9 Anxiety disorder, unspecified
CPT/HCPCS: 58558; 81025; 88305; J1100; J1885; J2001; J2405

== ENCOUNTER → 2023-05-05 02:52 | Outpatient (CLI) | payer MEDICAID, SELFPAY ==
--- NOTE | 2023-05-05 09:30 | DI.MRI_ITS ---
Exam(s) MR CERVICAL SPINE WO EXAM: MR CERVICAL SPINE WO CLINICAL HISTORY: Worsening neck pain with numbness to arm,m54.2 TECHNIQUE: Multiplanar multisequence MRI of the cervical spine was performed without intravenous con trast. COMPARISON: No exams were available for comparison FINDINGS: BONES: Vertebral body heights are maintained. Alignment is normal. Bone marrow signal intensity is wi thin normal limits. CERVICAL CORD: Craniovertebral junction is unremarkable. The cervical cord is normal size and signal intensity. SOFT TISSUES: Unremarkable. C2-3: No disc herniation or bulge is identified. No evidence of neural foraminal narrowing. No signi ficant central canal stenosis. C3-4: No disc herniation or bulge is identified. No evidence of neural foraminal narrowing. No signif icant central canal stenosis. C4-5: No disc herniation or bulge is identified. No evidence of neural foraminal narrowing. No signif icant central canal stenosis. C5-6: No disc herniation or bulge is identified. No evidence of neural foraminal narrowing. No signif icant central canal stenosis. C6-7: No disc herniation or bulge is identified. No evidence of neural foraminal narrowing. No signif icant central canal stenosis. C7-T1: No disc herniation or bulge is identified. No evidence of neural foraminal narrowing. No signi ficant central canal stenosis. IMPRESSION: Unremarkable MRI of the cervical spine. DATA REPOSITORY:
--- NOTE | 2023-05-05 10:00 | DI.MRI_ITS ---
Exam(s) MR THORACIC SPINE WO EXAM: MR THORACIC SPINE WO CLINICAL HISTORY: Worsening upper back pain, m54.9. TECHNIQUE: Multiplanar multisequence MRI of the Thoracic spine was performed. COMPARISON: No exams were available for comparison FINDINGS: Bones: The vertebral body heights are well maintained. Alignment is satisfactory. The signal characte ristics are unremarkable. Incidental small hemangioma T8. Cord: The thoracic cord is normal size and signal intensity. No intrinsic cord lesion is present. Discs: No disc herniation or bulge is present. Soft tissues: Normal. IMPRESSION: Unremarkable MRI examination of the thoracic spine. DATA REPOSITORY:
== END ==
PROVIDERS: PCP Nurse Practitioner Family; Visit Provider Nurse Practitioner Family
DX: G89.29 Other chronic pain (principal); M54.9 Dorsalgia, unspecified; M54.2 Cervicalgia
CPT/HCPCS: 72141; 72146

== ENCOUNTER 2023-05-22 12:29 | Outpatient (CLI) | payer MEDICAID, SELFPAY ==
[2023-05-22 12:40] VITALS: BP 120/85; PULSE 88; RESP 20; O2SAT 97
[2023-05-22 13:32] VITALS: PULSE 81; O2SAT 98
[2023-05-22] MEDS: Lidocaine 2% Pres-Free 5 ML VIAL IJ (13:49)
[2023-05-22] MEDS: methylPREDNISolone ACETATE 40 MG/ML VIAL IJ (13:50)
--- NOTE | 2023-05-27 08:38 | PDOC.PAIN ---
Date of service: 05/22/23 Time of Service: 13:00 US Guided Injections Type of Ultrasound Guided Injection: Trigger Point Injection (Left trapezius, left deltoid, left rhomboid, left supraspinatous, left infraspinatous, and bilateral lumbar paraspinous muscles) Pre-Procedural Evaluation Tender to palpation at the proposed sites. No skin abnormalities at the proposed sites. Referral Patient has been referred to the [facility] for Trigger Point Injection for a chief complaint of Left upper back and shoulder pain and bilateral lower back pain Pre-Procedural Pain Score Pre-procedural pain score: 7/10 Reason for Exam Muscle pain Patient Safety No skin abnormalities at the injection sites. Procedure Description No sedation given for procedure Patient was placed in the prone position and the following Pulse Ox applied. Pre-Procedure ultrasound scanning performed using a Linear 18 MHz probe Site Preparation Chloroprep Local Anesthesia of Lidocaine 2% (7 cc). A 21 G 3.5 Pajunk ultrasound needle was placed under live US guidance using an in-plane approach to the target area. After visualization of the needle tip at the target area Depo-Medrol 40mg per cc (1 cc) were used. Negative aspiration for blood. [place] were removed without difficulty. Ultrasound images were captured and stored. Patient Mental Status Patient was alert and awake during procedure Vital Signs Vital signs were stable throughout the procedure and recorded by nursing. Follow Up/Discharge Follow up plans and appointments were discussed with patient. Post procedure instruction was given as documented in nursing documentation. Discharge criteria met and patient discharged from [facility]: Yes Post Procedure Pain Post Procedure Pain: 5/10 Patient tolerated procedure well (Her partner held her hand throughout the procedure.) Procedure Outcome: Successful Trigger Point Injection 3+muscles Non US Guided Injections Procedure Description Patient was placed in the prone position Post Procedure Pain Post Procedure Pain: 5/10
== END 2023-05-22 12:30 | disposition home or self-care (01) ==
LOC: PC 12:29
PROVIDERS: PCP Nurse Practitioner Family; Visit Provider Preventive Medicine Occupational Medicine
DX: M79.18 Myalgia, other site (principal)
CPT/HCPCS: 00123; 20553; 76942; J1030

== ENCOUNTER 2023-08-07 03:53 | Outpatient (CLI) | payer MEDICAID, SELFPAY ==
[2023-08-07 12:14] LABS: HCT 41.6 % (36.0-46.0); HGB 14.1 g/dL (11.2-15.7); MCH 30.9 pg (27.0-33.0); MCHC 33.9 % (32.0-36.0); MCV 91 fL (80-95); MPV 9.7 fL (8.0-11.0); Platelet Count 365 10^3/uL (130-400); RBC 4.57 10^6/uL (3.93-5.22); RDW 12.9 % (11.7-14.6); RDW-SD 42.8 fL; WBC 8.66 10^3/uL (4.4-10.8)
[2023-08-07 12:28] LABS: ALT 25 U/L (14-59); AST 18 U/L (15-37); Albumin 3.9 g/dL (3.4-5.0); Alkaline Phosphatase 64 U/L (46-116); Anion Gap 7.9 mmol/L (3-11); BUN 9 mg/dL (7-18); Bilirubin, Total 0.3 mg/dL (0.2-1.0); C-Reactive Protein 0.41 mg/dL (0.0-0.3); CO2 26.1 mmol/L (21.0-32.0); CREATININE 0.9 mg/dL (0.55-1.02); Calcium 9.3 mg/dL (8.5-10.1); Chloride 106 mmol/L (98-107); Glucose 101 mg/dL (74-106); Potassium 3.8 mmol/L (3.5-5.1); Sodium 140 mmol/L (136-145); Total Protein 7.9 g/dL (6.4-8.2)
[2023-08-08 10:35] LABS: Lyme Ab w Rflx to Lyme Confirm Negative (Negative)
[2023-08-09 22:46] LABS: Anaplasma phagocytophilum Negative (Negative); B. miyamotoi PCR Negative (Negative); Babesia divergens/MO-1 Negative (Negative); Babesia duncani Negative (Negative); Babesia microti Negative (Negative); Ehrlichia chaffeensis Negative (Negative); Ehrlichia ewingii/canis Negative (Negative); Ehrlichia muris eauclairensis Negative (Negative)
== END 2023-08-07 03:54 | disposition home or self-care (01) ==
LOC: LOS 03:54
PROVIDERS: PCP Nurse Practitioner Family; Visit Provider Nurse Practitioner Family
DX: M62.838 Other muscle spasm (principal)
CPT/HCPCS: 36415; 80053; 85027; 87798; 86140; 86618

== ENCOUNTER 2023-08-28 14:29 | Emergency (ER) | payer MEDICAID, SELFPAY ==
--- NOTE | 2023-08-28 14:30 | DI.US_ITS ---
Exam(s) US LOWER EXTREMITY VENOUS LT EXAM: US LOWER EXTREMITY VENOUS LT CLINICAL HISTORY: left leg swelling/calf pain TECHNIQUE: Grayscale, color, and doppler imaging of the deep venous system of the left lower extremi ty was performed. COMPARISON: US POCUS EXAM from 05/22/2023 FINDINGS: There is no evidence of intraluminal thrombus and there is normal compression and augmentation demons trated within the common femoral vein, femoral vein, and popliteal vein. In the ipsilateral calf the interrogated veins also exhibit normal compression/ augmentation properti es. The ipsilateral saphenofemoral junction is patent. IMPRESSION: 1. No evidence of DVT in the left lower extremity. DATA REPOSITORY:
[2023-08-28 14:33] VITALS: BP 136/95; PULSE 90; RESP 17; TEMP 36.5; O2SAT 95
--- NOTE | 2023-08-28 14:45 | W.ED.GENAD ---
HPI General Date/Time Provider Initiated Documentation: 08/28/23 14:31. Limitations to Documentation: no limitations. Information obtained by: patient. History of Present Illness 38 year old F presents to the emergency department with the chief complaint of left ankle/foot pain, described as moderate, Quality is described as aching, Patient started experiencing this week(s) (2) and it has been intermittent. other things that improve symptom(s), (not putting weight on it) Other factors that worsen symptoms (putting weight on left foot) . Patient notes denies chest pain, fever/chills and shortness of breath. Patient did receive the following treatments prior to arrival, NSAID Related Data Home Medications Medication Instructions Recorded Confirmed multivit-iron 18 mg-folic acid 400 1 tab PO DAILY 08/16/21 08/28/23 mcg-calcium 500 mg-minerals tablet (Women's One Daily) ibuprofen 200 mg capsule 200 mg PO Q6H PRN 08/07/22 08/28/23 Allergies Allergy/AdvReac Type Severity Reaction Status Date / Time amoxicillin AdvReac Nausea Verified 08/28/23 14:49 General Stated Complaint: Orthopedic JOESPH: 4 Review of Systems All systems reviewed & are unremarkable except as noted in HPI and below Constitutional Constitutional: Denies chills, Denies fever(s) and Denies weakness Cardiovascular Cardiovascular: Denies chest pain and Denies dyspnea Respiratory Respiratory: Denies cough and Denies dyspnea Gastrointestinal Gastrointestinal: Denies abdominal pain, Denies nausea and Denies vomiting Integumentary/Breasts Skin/Breast: Denies rash Neurologic Neurologic: Denies weakness Exam Const General: no acute distress Orientation: alert [facility] Head: normal to inspection Ears: external ears normal General nose exam: external nose normal Mouth: moist mucous membranes Eyes General: appearance normal, both eyes and all related structures Neck Neck: normal visual inspection Resp Effort & Inspection: normal respiratory effort and able to speak in complete sentences Cardio Rate: regular rate Back/Spine/Pelvis Back: no CVA tenderness Skin General skin exam: no rashes or lesions noted Neuro General: patient alert and patient oriented x3 Extrem General: normal to inspection, full ROM and capillary refill normal Psych Mental Status: mental status grossly normal Course Vital Signs Vital signs: Vital Signs Temperature 36.5 C 08/28/23 14:33 Pulse 90 08/28/23 14:33 Respiratory Rate 17 08/28/23 14:33 Blood Pressure 136/95 H 08/28/23 14:33 Pulse Oximetry 95 08/28/23 14:33 Temperature 36.5 C 08/28/23 14:33 Pulse 90 08/28/23 14:33 Respiratory Rate 17 08/28/23 14:33 Blood Pressure 136/95 H 08/28/23 14:33 Blood Pressure Position Sitting 08/28/23 14:33 Pulse Oximetry 95 08/28/23 14:33 Oxygen Delivery Method Room Air 08/28/23 14:33 Oxygen Flow Rate 0 08/28/23 14:33 Medical Decision Making 38 yo female comes in with left foot and ankle pain for 2 weeks but today has been more constant. Denies fevers, chills, rashes. States she feels there is swelling in the foot. She is caox4 and appears well in no distress. She denies ivdu. Her leg is normal appearing, has tenderness on the left lateral ankle and left mid foot, no visible or palpable deformities, has full rom of the ankle, no pain of the posterior ankle, does have mid calf tenderness, normal pulses in the foot and sensation with full rom of the ankle. Suspect tendonitis vs plantar fascititis given she has pain on the plantar surface of her foot as well. Will obtain dvt u/s given her calf tenderness and xrays to evaluate for possible stress fracture. She has no findings on history or exam to suggest septic joint or infectious etiology imaging negative, pt stable, will provide walking boot and advised weight bearing as tolerated, advised to f/u with pcp and return precautions given. Exam stable, still no warmth or redness and normal pulses in the foot Differential Diagnosis Differential Diagnosis: tendonitis, plantar fascitis, dvt Imaging Data Radiologic Study: Attestation: I personally reviewed and interpreted this imaging study as follows: Imaging: Ultrasound Radiologist's impression: EXAM: US LOWER EXTREMITY VENOUS LT CLINICAL HISTORY: left leg swelling/calf pain TECHNIQUE: Grayscale, color, and doppler imaging of the deep venous system of the left lower extremity was performed. COMPARISON: US POCUS EXAM from 05/22/2023 FINDINGS: There is no evidence of intraluminal thrombus and there is normal compression and augmentation demonstrated within the common femoral vein, femoral vein, and popliteal vein. In the ipsilateral calf the interrogated veins also exhibit normal compression/ augmentation properties. The ipsilateral saphenofemoral junction is patent. IMPRESSION: 1. No evidence of DVT in the left lower extremity. Radiologic Study #2: Attestation: I personally reviewed and interpreted this imaging study as follows: Imaging: X-Ray Radiologist's impression: no acute findings foot xray Radiologic Study #3: Attestation: I personally reviewed and interpreted this imaging study as follows: Imaging: X-Ray Radiologist's impression: no acute findings ankle xray Quality:SDOH Health Related Social Needs: No Data to Display PFSH All Active Problems (Updated 08/28/23 @ 15:58 by Boone Marte MD) Foot pain, left (Acute) Ankle pain, left (Acute) Tenderness of left calf (Acute) Muscle spasm (Acute) Chronic upper back pain (Acute) Chronic neck pain (Acute) Muscle spasms that pull her face down. Status post dilation and curettage (Acute) Hysteroscopy, dilation and curettage with MyoSure removal of endometrial polyp 01/22/2023 Muscle pain (Acute) sees pain management Muscle pain, myofascial (Acute) Adhesive capsulitis of left shoulder (Acute) Chronic obstructive lung disease (Chronic) Chronic fatigue syndrome (Acute) Insomnia disorder (Acute) Mild recurrent major depression (Acute) Tobacco user (Acute) less than pack/day Anxiety (Chronic) Weight gain (Acute) Dislocation of left shoulder joint (Acute) Superior labrum ffbvmoid-ri-ahbvwufif (SLAP) tear of left shoulder (Acute) Bursitis of left shoulder (Acute) Medical History (Updated 08/28/23 @ 15:58 by Boone Marte MD) Loss of teeth due to extraction 2018 Idiopathic hypersomnia COVID-19 Surgical History History of arthroscopy of left shoulder (05/17/22) Family History Mother Depression Father , 60 No problems noted. Sister No problems noted. Son No problems noted. Son No problems noted. Social History (Updated 05/22/23 @ 12:38 by Helio West RN) Smoking/Tobacco Use Status: Current every day Tobacco Type: cigarettes Tobacco: How many years used: 20 Quit status: considering quitting Second Hand Exposure: Yes Smoking risk assessment performed?: Yes Alcohol Intake: current Alcohol Intake frequency: a few times a month Alcohol type: beer, wine and hard liquor Drug use: Daily Substance use type: marijuana Caregiver/Support person: No Household members: significant other and children Housing: house Communication Needs: None Do you need help understanding health information?: Rarely Pets and animals: Yes Pets and animals: cat(s), dog(s), fish, snake(s) and other Sexually active: Yes Do you think of yourself as: straight/heterosexual Current gender identity: female What is your relationship status?: living with partner How often do you talk on the phone with friends or family?: once per week How often do you get together with friends or relatives?: never Do you belong to any clubs or organized social groups?: no Panel score (0-1 are the most socially isolated patients): 1 What type of physical activity do you participate in: walking Duration: 15-30 minutes/day Frequency: 3-4 times per week Lori/Zoroastrian: Humphries Special lori needs: No Seatbelt use: always Helmet use: Yes Helmet use: always Drive intox or ride w/intox stake driver: No Do you feel safe at home: Yes Do you feel safe in your relationship?: Yes History History 5 Para 2 Hx # Term Pregnancies 2 Multiple births Hx # Pregnancies Ectopic pregnancies AB induced Hx Number of Living Children 2 AB spontaneous Discharge Plan Disposition Patient Disposition: Home Condition: Stable Discharge Details Clinical Impression: Tenderness of left calf, Ankle pain, left, Foot pain, left Primary Care Provider: Chris Merritt ED Provider: Boone Marte Meds and New Rx's Prescriptions: Continued ibuprofen 200 mg capsule 200 mg PO Q6H PRN Women's One Daily 18 mg iron-400 mcg-500 mg Ca Tablet 1 tab PO DAILY Discharge Instructions Additional Instructions: Your ultrasound and xrays did not show concerning findings at this time you should bear weight as tolerated and use the crutches as needed if not better within 1-2 weeks follow up with your primary care provider if you feel more ill, have severe worsening pain or new symptoms such as fevers return to the emergency department
[2023-08-28] MEDS: Acetaminophen 500 MG TAB 1000 MG PO (14:51)
--- NOTE | 2023-08-28 15:41 | DI.RAD_ITS ---
Exam(s) XR ANKLE LT COMPLETE EXAM: XR ANKLE LT COMPLETE CLINICAL HISTORY: left ankle pain. TECHNIQUE: 2D digital imaging was performed. COMPARISON: No exams were available for comparison FINDINGS: 3 views No evidence of fracture or widening of the ankle mortise. Talar dome unremarkable. Fifth metatarsal base intact. Bone density normal. No osseous lesion IMPRESSION: No acute osseous findings in the ankle. DATA REPOSITORY: RADIATION DOSE DELIVERED:
--- NOTE | 2023-08-28 15:45 | DI.RAD_ITS ---
Exam(s) XR FOOT LT COMPLETE EXAM: XR FOOT LT COMPLETE CLINICAL HISTORY: pain. TECHNIQUE: 2D digital imaging was performed. COMPARISON: CR XR TOE LT GREAT from 03/23/2021 FINDINGS: 3 views No soft tissue swelling. No evidence of acute fracture nor diastasis of the Lisfranc joint. Great t oe metatarsophalangeal joint appears unremarkable. Lung tissue neural linear lucency in the middle c uneiform bone is due to overlapping shadows and does not represent a fracture. Tarsometatarsal joint s appear unremarkable as do the MTP joints. No inferior calcaneal spur. Bone density normal. No os seous lesions. No pes planus. IMPRESSION: No significant osseous findings in the foot. DATA REPOSITORY: RADIATION DOSE DELIVERED:
== END 2023-08-28 16:16 | disposition home or self-care (01) ==
PROVIDERS: Emergency Provider Emergency Medicine; PCP Nurse Practitioner Family
DX: M25.572 Pain in left ankle and joints of left foot (principal); M79.672 Pain in left foot; M79.662 Pain in left lower leg; F17.210 Nicotine dependence, cigarettes, uncomplicated
CPT/HCPCS: 99284; 73610; 73630; 93971; 99283

== ENCOUNTER → 2023-10-16 02:18 | Outpatient (CLI) | payer MEDICAID, SELFPAY ==
--- NOTE | 2023-10-16 07:45 | DI.US_ITS ---
Exam(s) US PELVIS TRANSVAGINAL EXAM: US PELVIS TRANSVAGINAL CLINICAL HISTORY: check stripe,AMENORRHEA,N91.2 TECHNIQUE: Transabdominal and transvaginal imaging was performed using standard protocol. COMPARISON: None FINDINGS: UTERUS: Anteverted. 7.1 x 3.7 x 4.0 cm Endometrium: 4 mm Myometrium: Focal area of echogenic foci adjacent to the endometrium in the posterior myometrium. Th is could be secondary to previous procedure or could represent focal adenomyomatosis. Cervix: Unremarkable. OVARIES: Right: Cyst or mass: None. Left: Cyst or mass: None. DOPPLER: Color: Symmetric and uniform flow to both ovaries. No hyperemia. CUL-DE-SAC: Free fluid: None. IMPRESSION: 1. Focal echogenic foci adjacent to the endometrium could be secondary to previous procedure or could represent adenomyomatosis. 2. Unremarkable bilateral ovaries. DATA REPOSITORY:
== END ==
PROVIDERS: PCP Nurse Practitioner Family; Visit Provider Obstetrics & Gynecology
DX: N91.2 Amenorrhea, unspecified (principal)
CPT/HCPCS: 76830; 76856

== ENCOUNTER 2023-10-16 05:36 | Outpatient (CLI) | payer MEDICAID, SELFPAY ==
[2023-10-16 17:48] LABS: FSH 16.2 mIU/mL (See Note); Prolactin 6.1 ng/mL (See Note)
== END 2023-10-16 05:37 | disposition home or self-care (01) ==
LOC: LBO 05:36
PROVIDERS: PCP Nurse Practitioner Family; Visit Provider Obstetrics & Gynecology
DX: N91.2 Amenorrhea, unspecified (principal)
CPT/HCPCS: 36415; 83001; 84146

== ENCOUNTER 2023-12-02 09:16 | Emergency (ER) | payer MEDICAID, SELFPAY ==
[2023-12-02 09:31] VITALS: BP 123/80; PULSE 91; RESP 16; TEMP 36.6; O2SAT 98
--- NOTE | 2023-12-02 10:21 | DI.RAD_ITS ---
Exam(s) XR HAND LT COMPLETE EXAM: XR HAND LT COMPLETE CLINICAL HISTORY: left 4th digit injury, extend into metacarpal. TECHNIQUE: 2D digital imaging was performed of the left hand. Three views were obtained. AP, later al and oblique views were obtained. COMPARISON: No exams were available for comparison FINDINGS: BONES: No acute fracture is present. No bony destructive lesion is seen. JOINTS: No dislocation present. SOFT TISSUE: Normal. IMPRESSION: No acute fracture or dislocation. DATA REPOSITORY: RADIATION DOSE DELIVERED:
--- NOTE | 2023-12-02 13:54 | ED.GENADUL_ITS ---
Discharge Plan Disposition Patient Disposition: Home Condition: Stable Discharge Details Clinical Impression: Finger injury Primary Care Provider: Chris Merritt ED Provider: Kristina Dalal Home Meds and New Rx's Prescriptions: Continued duloxetine [Cymbalta] 30 mg capsule,delayed release(DR/EC) 30 mg PO DAILY Qty: 90 0RF methocarbamol 500 mg tablet 500 mg PO TID Qty: 90 0RF norgestimate-ethinyl estradiol [Estarylla] 0.25-35 mg-mcg tablet See Rx Instructions .ROUTE .COMPLEX Qty: 84 3RF Dose Instruction: TAKE 1 TABLET BY MOUTH DAILY Rx Instructions: TAKE 1 TABLET BY MOUTH DAILY ibuprofen 200 mg capsule 200 mg PO Q6H PRN Women's One Daily 18 mg iron-400 mcg-500 mg Ca Tablet 1 tab PO DAILY Discharge Instructions Additional Instructions: Keep your brace in place, take ibuprofen and Tylenol for pain I am concerned that you may have a volar plate fracture I do recommend you follow-up with orthopedics for reassessment Return earlier should you have new or worsening complaints Referrals: Oswaldo Lam MD [ [facility] - [facility] General Date/Time Provider Initiated Documentation: 12/02/23 09:54 . HPI Narrative: This 38-year-old female presents with a left fourth digit injury a month ago while she slipped in tub. She landed on this finger. She denies any additional injuries. She states that she splinted it for 2 weeks but did not have improvement so remove the splint. She presents today secondary to persistent pain and having difficulty flexing the finger. Denies chance of . Related Data Home Medications Medication Instructions Recorded Confirmed multivit-iron 18 mg-folic acid 400 1 tab PO DAILY 08/16/21 12/02/23 mcg-calcium 500 mg-minerals tablet (Women's One Daily) ibuprofen 200 mg capsule 200 mg PO Q6H PRN 08/07/22 12/02/23 duloxetine 30 mg capsule,delayed 30 mg PO DAILY #90 caps 10/22/23 12/02/23 release (Cymbalta) methocarbamol 500 mg tablet 500 mg PO TID #90 tabs 11/20/23 12/02/23 norgestimate 0.25 mg-ethinyl See Rx Instructions .Route 11/25/23 12/02/23 estradiol 35 mcg tablet (Estarylla) .COMPLEX #84 tabs Previous Rx's Medication Instructions Recorded duloxetine 30 mg capsule,delayed 30 mg PO DAILY #90 caps 10/22/23 release (Cymbalta) methocarbamol 500 mg tablet 500 mg PO TID #90 tabs 11/20/23 norgestimate 0.25 mg-ethinyl See Rx Instructions .Route 11/25/23 estradiol 35 mcg tablet (Estarylla) .COMPLEX #84 tabs Allergies Allergy/AdvReac Type Severity Reaction Status Date / Time amoxicillin AdvReac Nausea Verified 12/02/23 09:32 General Stated Complaint: Orthopedic JOESPH: 4 Exam Narrative Exam Narrative: Left fourth digit with decreased flexion secondary to pain and swelling, distal pulses intact, mild tenderness at MCP joint, neurovascularly intact Course Vital Signs Vital signs: Vital Signs Temperature 36.6 C 12/02/23 09:31 Pulse 91 H 12/02/23 09:31 Respiratory Rate 16 12/02/23 09:31 Blood Pressure 123/80 12/02/23 09:31 Pulse Oximetry 98 12/02/23 09:31 Temperature 36.6 C 12/02/23 09:31 Temperature Source Skin 12/02/23 09:31 Pulse 91 H 12/02/23 09:31 Respiratory Rate 16 12/02/23 09:31 Respiratory Effort Normal, Non-Labored 12/02/23 09:33 Blood Pressure 123/80 12/02/23 09:31 Blood Pressure Position Sitting 12/02/23 09:31 Pulse Oximetry 98 12/02/23 09:31 Oxygen Delivery Method Room Air 12/02/23 09:31 Oxygen Flow Rate 0 12/02/23 09:31 Pain Level 2 12/02/23 09:31 Medical Decision Making 38-year-old female presenting with 1 month of pain to left fourth digit, reproducible tenderness overlying the PIP joint on the fourth digit and some tenderness to MCP, brisk capillary refill distally Concern for possible volar plate fracture will place back in splint and referred to orthopedics given longevity of symptoms. Encouraged to take ibuprofen and Tylenol as needed for pain and to return earlier with new or worsening complaints Quality:SDOH Health Related Social Needs: Health related social needs inadequate housing PFSH All Active Problems (Updated 12/02/23 @ 10:38 by SHARMAINE Doty) Finger injury (Acute) Breast cyst (Acute) Skin, small abscess. Amenorrhea (Acute) Muscle spasm (Acute) Chronic upper back pain (Acute) Chronic neck pain (Acute) Muscle spasms that pull her face down. Status post dilation and curettage (Acute) Hysteroscopy, dilation and curettage with MyoSure removal of endometrial polyp 01/22/2023 Muscle pain (Acute) sees pain management Muscle pain, myofascial (Acute) Adhesive capsulitis of left shoulder (Acute) Chronic obstructive lung disease (Chronic) Chronic fatigue syndrome (Acute) Insomnia disorder (Acute) Mild recurrent major depression (Acute) Tobacco user (Acute) less than pack/day Anxiety (Chronic) Weight gain (Acute) Dislocation of left shoulder joint (Acute) Superior labrum ubnniewp-ag-coyefbukr (SLAP) tear of left shoulder (Acute) Bursitis of left shoulder (Acute) Medical History Loss of teeth due to extraction 2018 Idiopathic hypersomnia COVID-19 Surgical History History of arthroscopy of left shoulder (05/17/22) Family History Mother Depression Father , 60 No problems noted. Sister No problems noted. Son No problems noted. Son No problems noted. Social History Smoking/Tobacco Use Status: Current every day Tobacco Type: cigarettes Tobacco: How many years used: 20 Quit status: considering quitting Second Hand Exposure: Yes Smoking risk assessment performed?: Yes Alcohol Intake: current Alcohol Intake frequency: a few times a month Alcohol type: beer, wine and hard liquor Drug use: Daily Substance use type: marijuana Caregiver/Support person: No Household members: significant other and children Housing: house Communication Needs: None Do you need help understanding health information?: Rarely Pets and animals: Yes Pets and animals: cat(s), dog(s), fish, snake(s) and other Sexually active: Yes Do you think of yourself as: straight/heterosexual Current gender identity: female What is your relationship status?: living with partner How often do you talk on the phone with friends or family?: once per week How often do you get together with friends or relatives?: never Do you belong to any clubs or organized social groups?: no Panel score (0-1 are the most socially isolated patients): 1 What type of physical activity do you participate in: walking Duration: 15-30 minutes/day Frequency: 3-4 times per week Lori/Rastafari: Kristel Special lori needs: No Seatbelt use: always Helmet use: Yes Helmet use: always Drive intox or ride w/intox line driver: No Do you feel safe at home: Yes Do you feel safe in your relationship?: Yes History History 5 Para 2 Hx # Term Pregnancies 2 Multiple births Hx # Pregnancies Ectopic pregnancies AB induced Hx Number of Living Children 2 AB spontaneous
== END 2023-12-02 11:03 | disposition home or self-care (01) ==
PROVIDERS: Emergency Provider Physician Assistant; PCP Nurse Practitioner Family
DX: M79.645 Pain in left finger(s) (principal); W19.XXXA Unspecified fall, initial encounter
CPT/HCPCS: 29130; 99283; 73130

== ENCOUNTER 2024-02-15 09:56 | Emergency (ER) | payer MEDICAID, SELFPAY ==
[2024-02-15 10:04] VITALS: BP 119/80; PULSE 98; RESP 14; TEMP 36.4; O2SAT 98
[2024-02-15 11:17] VITALS: BP 119/80; PULSE 98; RESP 14; TEMP 36.4; O2SAT 98
--- NOTE | 2024-02-16 22:08 | ED.GENADUL_ITS ---
Discharge Plan Disposition Patient Disposition: Home Condition: Stable Discharge Details Clinical Impression: Abscess of breast Primary Care Provider: Chris Merritt ED Provider: Kristina Dalal Home Meds and New Rx's Prescriptions: New cephalexin 500 mg capsule 500 mg PO Q6H 7 Days Qty: 28 0RF Continued norgestimate-ethinyl estradiol [Estarylla] 0.25-35 mg-mcg tablet See Rx Instructions .ROUTE .COMPLEX Qty: 84 3RF Dose Instruction: TAKE 1 TABLET BY MOUTH DAILY Rx Instructions: TAKE 1 TABLET BY MOUTH DAILY methocarbamol 500 mg tablet 500 mg PO TID Qty: 90 0RF ibuprofen 200 mg capsule 200 mg PO Q6H PRN duloxetine [Cymbalta] 30 mg capsule,delayed release(DR/EC) 30 mg PO DAILY Qty: 90 3RF Women's One Daily 18 mg iron-400 mcg-500 mg Ca Tablet 1 tab PO DAILY Discharge Instructions Instructions: Abscess Incision and Drainage ED Additional Instructions: Warm compresses, hold on antibiotics for 24 hours I suspect this will improve without antibiotic addition Ibuprofen and Tylenol as needed for pain Warm compresses every hour or 2, moist heat works really well to encourage drainage may apply a large Band-Aid or gauze over area to assist with drainage Please return spreading redness, fever, worsening pain, recommendation for outpatient mammogram at the discretion of your provider of course Discharge Data Discharge Date/Time-TO BE ENTERED AT DEPARTURE: 02/15/24 11:33 HPI General Date/Time Provider Initiated Documentation: 02/15/24 11:02 . HPI Narrative: This 38-year-old female presents with abscess to left breast which started several days prior to arrival. History of similar has not been previously drained per patient. Denies fever chills or any systemic signs or symptoms of illness. Not had a prior mammogram and denies illicit drug use per patient. Related Data Home Medications ?Medication ?Instructions ?Recorded ?Confirmed multivit-iron 18 mg-folic acid 400 1 tab PO DAILY 08/16/21 02/15/24 mcg-calcium 500 mg-minerals tablet (Women's One Daily) ibuprofen 200 mg capsule 200 mg PO Q6H PRN 08/07/22 02/15/24 norgestimate 0.25 mg-ethinyl See Rx Instructions .Route 11/25/23 02/15/24 estradiol 35 mcg tablet (Estarylla) .COMPLEX #84 tabs methocarbamol 500 mg tablet 500 mg PO TID #90 tabs 01/01/24 02/15/24 duloxetine 30 mg capsule,delayed 30 mg PO DAILY #90 caps 01/15/24 02/15/24 release (Cymbalta) cephalexin 500 mg capsule 500 mg PO Q6H 7 days #28 caps 02/15/24 Previous Rx's ?Medication ?Instructions ?Recorded norgestimate 0.25 mg-ethinyl See Rx Instructions .Route 11/25/23 estradiol 35 mcg tablet (Estarylla) .COMPLEX #84 tabs methocarbamol 500 mg tablet 500 mg PO TID #90 tabs 01/01/24 duloxetine 30 mg capsule,delayed 30 mg PO DAILY #90 caps 01/15/24 release (Cymbalta) cephalexin 500 mg capsule 500 mg PO Q6H 7 days #28 caps 02/15/24 Allergies Allergy/AdvReac Type Severity Reaction Status Date / Time amoxicillin AdvReac Nausea Verified 02/15/24 10:08 General Stated Complaint: Cellulitis JOESPH: 3 Exam Narrative Exam Narrative: Fluctuant abscess noted to some o'clock position left breast, approximately half an inch, manage erythema surrounding no lymphangitis no crepitus the drains from nipple Course Vital Signs Vital signs: Vital Signs Temperature 36.4 C L 02/15/24 10:04 Pulse 98 H 02/15/24 10:04 Respiratory Rate 14 02/15/24 10:04 Blood Pressure 119/80 02/15/24 10:04 Pulse Oximetry 98 02/15/24 10:04 Temperature 36.4 C L 02/15/24 11:17 Temperature Source Skin 02/15/24 10:04 Pulse 98 H 02/15/24 11:17 Respiratory Rate 14 02/15/24 11:17 Respiratory Effort Normal, Non-Labored 02/15/24 10:09 Blood Pressure 119/80 02/15/24 11:17 Blood Pressure Position Sitting 02/15/24 10:04 Pulse Oximetry 98 02/15/24 11:17 Oxygen Delivery Method Room Air 02/15/24 10:04 Oxygen Flow Rate 0 02/15/24 10:04 Pain Level 2 02/15/24 10:04 Lab/Test Results Lab/Test Results: 02/15/24 11:05 Breast - Left Wound Culture - Preliminary Gram Positive Diane,Mixed 02/15/24 11:05 Breast - Left Gram Stain - Final Procedures Abscess I/D Site: Other Side (if applicable): Left Local Anesthetic: Lidocaine 1% and With Epi Amount of anesthesia used (mL): 3 Technique: Incised with #11 Blade Amount of fluid expressed (mL): 5 Irrigation: Yes Packing used?: Plain Medical Decision Making Patient presenting with abscess to left breast. Incised and drained and patient's blood with Keflex as this is markedly improved tomorrow. Recommend continue with warm compresses. Patient to hold antibiotics at this time. wick removal in 72 hours. Outpatient mammogram at patient's providers preference and return precautions reviewed and patient expressed understanding Quality:SDOH Health Related Social Needs: Health related social needs inadequate housing PFSH All Active Problems (Updated 02/15/24 @ 11:02 by SHARMAINE Doty) Abscess of breast (Acute) Carpal tunnel syndrome (Acute) Breast cyst (Acute) Skin, small abscess. Amenorrhea (Acute) Muscle spasm (Acute) Chronic upper back pain (Acute) Chronic neck pain (Acute) Muscle spasms that pull her face down. Status post dilation and curettage (Acute) Hysteroscopy, dilation and curettage with MyoSure removal of endometrial polyp 01/22/2023 Muscle pain (Acute) sees pain management Muscle pain, myofascial (Acute) Adhesive capsulitis of left shoulder (Acute) Chronic obstructive lung disease (Chronic) Chronic fatigue syndrome (Acute) Insomnia disorder (Acute) Mild recurrent major depression (Acute) Tobacco user (Acute) less than pack/day Anxiety (Chronic) Weight gain (Acute) Dislocation of left shoulder joint (Acute) Superior labrum xtipjrsq-qm-[place] (SLAP) tear of left shoulder (Acute) Bursitis of left shoulder (Acute) Medical History Loss of teeth due to extraction 2018 Idiopathic hypersomnia COVID-19 Surgical History History of arthroscopy of left shoulder (05/17/22) Family History Mother Depression Father , 60 No problems noted. Sister No problems noted. Son No problems noted. Son No problems noted. Social History Smoking/Tobacco Use Status: Current every day Tobacco Type: cigarettes Tobacco: How many years used: 20 Quit status: considering quitting Second Hand Exposure: Yes Smoking risk assessment performed?: Yes Alcohol Intake: current Alcohol Intake frequency: a few times a month Alcohol type: beer, wine and hard liquor Drug use: Daily Substance use type: marijuana Caregiver/Support person: No Household members: significant other and children Housing: house Communication Needs: None Do you need help understanding health information?: Rarely Pets and animals: Yes Pets and animals: cat(s), dog(s), fish, snake(s) and other Sexually active: Yes Do you think of yourself as: straight/heterosexual Current gender identity: female What is your relationship status?: living with partner How often do you talk on the phone with friends or family?: once per week How often do you get together with friends or relatives?: never Do you belong to any clubs or organized social groups?: no Panel score (0-1 are the most socially isolated patients): 1 What type of physical activity do you participate in: walking Duration: 15-30 minutes/day Frequency: 3-4 times per week Lori/Church: [employer] Special lori needs: No Seatbelt use: always Helmet use: Yes Helmet use: always Drive intox or ride w/intox power screwdriver operator: No Do you feel safe at home: Yes Do you feel safe in your relationship?: Yes History History 5 Para 2 Hx # Term Pregnancies 2 Multiple births Hx # Pregnancies Ectopic pregnancies AB induced Hx Number of Living Children 2 AB spontaneous PAWSS Have you Been Recently Intoxicated or Drunk Within the Last 30 days?: No Have you Ever Experienced Previous Episodes of Alcohol Withdrawal?: No Have you ever Experienced Withdrawal Seizures?: No Have you ever Experienced Delirium Tremens(DT)s?: No Have you ever undergone Alcohol Rehabilitation Treatment (i.e, inpt ot outpatient treatment programs)?: No Have you ever Experienced Blackouts?: No Have you ever Combined Alcohol with other Downers within the last 90 days?: No Have you ever Combined Alcohol with any other Substance of Abuse during the last 90 days?: No Positive Blood Alcohol level on Presentation? [PCS.BAL]: No Evidence of Increased Autonomic Activity (i.e. HR>120, tremor, sweating, agitation, nausea)?: No Result: 0
== END 2024-02-15 11:33 | disposition home or self-care (01) ==
PROVIDERS: Emergency Provider Physician Assistant; PCP Nurse Practitioner Family
DX: N61.1 Abscess of the breast and nipple (principal); F17.210 Nicotine dependence, cigarettes, uncomplicated
CPT/HCPCS: 10061; 99283; 87070; 87205

== ENCOUNTER 2024-03-23 01:30 | Outpatient (CLI) | payer MEDICAID, SELFPAY ==
--- NOTE | 2024-03-23 13:22 | DI.MAMMO_ITS ---
Exam(s) US BREAST LT COMPLETE MG MAMMO DIAGNOSTIC BI EXAM: MG MAMMO DIAGNOSTIC BI AND COMPLETE LEFT BREAST ULTRASOUND CLINICAL HISTORY: abcess, recurrent,breast cyst,n60.09. TECHNIQUE: BOTH CC AND MLO BILATERAL mammographic images were obtained with 3D tomosynthesis technLifeblob ue and utilizing computer aided detection (CAD). ALSO performed spot compression view of left breast. COMPLETE LEFT BREAST ULTRASOUND performed including all 4 quadrants as well as the ipsilateral left a xilla. COMPARISON: This is a baseline mammogram this 38-year-old patient who has possible abscess on the un dersurface of the left breast. FINDINGS: DIAGNOSTIC BILATERAL MAMMOGRAM: There are no spiculated masses nor malignant-appearing microcalcification groups. There is no significant architectural distortion or skin thickening-traction. Additional spot compression view of the left breast does not reveal a discernible focal finding in th e area of clinical concern. We proceeded with ultrasound... COMPLETE LEFT BREAST ULTRASOUND: There is no evidence of solid or significant cystic lesions in all 4 quadrants of the left breast. T here is also no edema within the left breast tissue. No dense of focal abscess. Scanning of the left axilla is negative for adenopathy. IMPRESSION: No radiographic evidence of malignancy in either breast Negative complete left breast ultrasound No mammographic nor ultrasound findings to correlate with the recently lanced inflammatory lesion on the undersurface of the left breast. Clinical follow-up recommended. The patient was informed of the findings and follow-up recommendations [facility]. BI-RADS Category 2 - Benign Findings Breast Density - Category B - Scattered areas of fibroglandular density Breast density Category C or D implies that the patient has dense breast tissue. Dense breast tissue can make it harder to find cancer on a mammogram. Dense breast tissue is also associated with an incr eased risk of breast cancer. This information about the result of the mammogram report was provided to the patient to raise their awareness. Use this report when you speak with the patient about their risks for breast cancer, which includes their family history. At that time, you may recommend additional screening tests (Ultrasoun d or MRI) as these tests may add significant information. A negative radiographic report should not delay biopsy if a dominant or clinically suspicious mass is present. Up to ten percent of cancers are not identified on mammography. A negative report may reinforce clinical impression. Adenosis and dense breasts may obscure an underlying neoplasm. False positive reports average 6 to 10%. Patient will receive a letter notifying them of these results.
== END 2024-03-23 01:50 ==
LOC: DI 02:10
PROVIDERS: PCP Nurse Practitioner Family; Visit Provider Obstetrics & Gynecology
DX: N60.02 Solitary cyst of left breast (principal); Z12.31 Encounter for screening mammogram for malignant neoplasm of breast
CPT/HCPCS: 76642; 77062; 77066; G0279

== ENCOUNTER 2024-03-23 16:02 | Outpatient (CLI) | payer MEDICAID, SELFPAY ==
[2024-03-23 14:19] LABS: Hemoglobin A1C 5.7 % (<5.7)
[2024-03-23 14:46] LABS: Calculated LDL 133 mg/dL (<100); Cholesterol 216 mg/dL (<200); HDL Cholesterol 41 mg/dL (40-60); Triglyceride 213 mg/dL (<150)
== END 2024-03-23 16:03 | disposition home or self-care (01) ==
LOC: LBO 16:02
PROVIDERS: PCP Nurse Practitioner Family; Visit Provider Nurse Practitioner Family
DX: Z13.220 Encounter for screening for lipoid disorders (principal); Z13.1 Encounter for screening for diabetes mellitus
CPT/HCPCS: 36415; 80061; 83036

== ENCOUNTER 2024-05-11 08:26 | Outpatient (REF) | payer MEDICAID, SELFPAY ==
--- NOTE | 2024-05-11 08:20 | SOFT_PTH ---
PATIENT: Alcira Saldana LOC: [facility] U#:[id number] AGE/SX: 38/F ROOM: RE05/11/[address]: Cooper Aden MD : 1985 BED: DIS: 05/11/2024 SPEC #: [id number] RECD: 05/11/24 12:50 STATUS: CAL REQ #: [id number] DENISE: 05/11/24 08:[address]: Cooper Aden DEPT: Surgical Specimen RECD BY: Kristina Mccartney ENTERED: 05/11/24 12:51 SP TYPE: SOFT OTHR DR: Chris Merritt, YVONNE Tissues: 1 - [facility] Procedures: IMMUNOPEROXIDASE STAIN GROSS AND MICRO LEVEL 3 Comments: [id number]
== END 2024-05-11 08:27 | disposition home or self-care (01) ==
LOC: LBN 08:26
PROVIDERS: PCP Nurse Practitioner Family; Referring Provider Surgery; Visit Provider Surgery
DX: D17.1 Benign lipomatous neoplasm of skin and subcutaneous tissue of trunk (principal); N60.02 Solitary cyst of left breast
CPT/HCPCS: 88304; 88307; 88361

== ENCOUNTER 2024-05-25 09:52 | Outpatient (REF) | payer MEDICAID, SELFPAY ==
--- NOTE | 2024-05-25 09:10 | PAPFT_PTH ---
PATIENT: Alcira Saldana LOC: [facility] U#:[id number] AGE/SX: 38/F ROOM: RE05/25/[address]: Joan Rossi DO : 1985 BED: DIS: 05/25/2024 SPEC #: [id number] RECD: 05/25/24 13:15 STATUS: CAL REQ #: [id number] DENISE: 05/25/24 09:[address]: Joan Rossi [facility]PT[facility] Cytology RECD BY: Kristina Mccartney ENTERED: 05/25/24 13:17 SP TYPE: PAPFT OTHR DR: Chris Merritt, YVONNE Tissues: 1 - CX/ENDOCX FOR PAP SMEARS Procedures: PAP THIN PREP/[facility] Screening HPV DNA PROBE Comments: [id number] (HPV 16 & 18/45)
== END 2024-05-25 09:53 | disposition home or self-care (01) ==
LOC: LBN 09:52
PROVIDERS: PCP Nurse Practitioner Family; Visit Provider Obstetrics & Gynecology
DX: Z00.00 Encounter for general adult medical examination without abnormal findings (principal)
CPT/HCPCS: 88142; 87624

== ENCOUNTER 2024-10-04 11:49 | Outpatient (CLI) | payer MEDICAID, SELFPAY ==
--- NOTE | 2024-10-04 10:00 | DI.US_ITS ---
Exam(s) US LOWER EXTREMITY VENOUS LT EXAM: US LOWER EXTREMITY VENOUS LT CLINICAL HISTORY: M79.662 Pain in left lower leg, R/O DVT TECHNIQUE: Left lower extremity venous ultrasound performed using grayscale, color-flow, and spectra l Doppler analysis. COMPARISON: US US LOWER EXTREMITY VENOUS LT from 08/28/2023 FINDINGS: The left common femoral, femoral and popliteal veins demonstrate normal compressibility, augmentation , and color Doppler. The posterior tibial veins are patent. The saphenofemoral junction is unremarka ble. There is no evidence of a Carey cyst. The soft tissues are unremarkable. IMPRESSION: No evidence of a left lower extremity DVT. DATA REPOSITORY:
== END 2024-10-04 12:09 ==
LOC: DI 11:49
PROVIDERS: PCP Nurse Practitioner Family; Visit Provider Nurse Practitioner Family
DX: M79.662 Pain in left lower leg (principal)
CPT/HCPCS: 93971

== ENCOUNTER 2024-10-12 13:06 | Day surgery (SDC) | payer MEDICAID, SELFPAY ==
[2024-10-12] VITALS (14 sets, daily range): BP systolic 96–115; BP diastolic 54–95; PULSE 55–89; RESP 14–19; TEMP 36.3–36.8; O2SAT 95–98; BMI 32.1
--- NOTE | 2024-10-12 13:52 | W.ANESPRE ---
General Info Date of Service Date Performed: 10/12/24 Height: 5 ft 4 in Weight: 84.822 kg Body Mass Index (BMI): 32.1 Surgical Procedure: Operation Date: 10/12/24 17:25 Proposed Procedure Side Surgeon p Wrist ECTR Left Tristen Caro MD s Cubital Tunnel Release Left Tristen Caro MD Meds Allergies and Home Medications Allergies Allergy/AdvReac Type Severity Reaction Status Date / Time adhesive tape Allergy Skin Rash Verified 10/12/24 14:53 silver (From Tegaderm AG Allergy Skin Rash Verified 10/12/24 14:53 Mesh) amoxicillin AdvReac Nausea Verified 10/12/24 14:33 Home Medication ?Medication ?Instructions ?Recorded multivit-iron 18 mg-folic acid 400 1 tab PO DAILY 08/16/21 mcg-calcium 500 mg-minerals tablet (Women's One Daily) ibuprofen 200 mg capsule 200 mg PO Q6H PRN 08/07/22 methocarbamol 500 mg tablet 500 mg PO TID #90 tabs 07/08/24 cyclobenzaprine 10 mg tablet 10 mg PO HS PRN muscle spasm #30 09/02/24 tabs varenicline tartrate 1 mg tablet 1 mg PO BID #56 tabs 10/06/24 (Chantix Continuing Month Box) albuterol sulfate 90 mcg/actuation inhalation 10/12/24 aerosol inhaler duloxetine 30 mg capsule,delayed 30 mg PO HS 10/12/24 release (Cymbalta) norgestimate 0.25 mg-ethinyl 1 tab PO HS 10/12/24 estradiol 35 mcg tablet (Estarylla) Current Visit Medications: Current Medications Generic Name Dose Route Start Last Admin Trade Name Freq PRN Reason Stop Dose Admin Acetaminophen 1,000 mg 10/12/24 06:00 Acetaminophen 500 Mg Tab PO 10/12/24 23:59 PREOP LUIS ALBERTO Celecoxib 400 mg 10/12/24 06:00 Celecoxib 200 Mg Cap PO 10/12/24 23:59 PREOP LUIS ALBERTO Ringer's Solution 1,000 mls @ 80 mls/hr 10/12/24 06:00 IV 10/12/24 23:59 INFUSION LUIS ALBERTO Cefazolin Sodium/Dextrose 2 gm in 50 mls @ 100 mls/hr 10/12/24 06:00 Ancef Duplex IVPB 10/12/24 23:59 PREOP LUIS ALBERTO Tranexamic Acid/Sodium Chloride 1,000 mg in 100 mls @ 600 mls/hr 10/12/24 06:00 IVPB 10/12/24 23:59 PREOP LUIS ALBERTO IV Miscellaneous Supplies 1 each 10/12/24 06:00 Iv Access IV 10/12/24 23:59 DIRECTED LUIS ALBERTO Sodium Chloride 0 ml 10/12/24 06:00 Normal Saline Flush 10 Ml Syr IV 10/12/24 23:59 PRN PRN Sodium Chloride 0 ml 10/12/24 06:00 Normal Saline 10 Ml Vial IJ 10/12/24 23:59 DIRECTED PRN Sterile Water 0 ml 10/12/24 06:00 Water,Injection,Sterile 10 Ml Vial IJ 10/12/24 23:59 DIRECTED PRN PFSH Active Problems Active Problems: Problem Status Onset Code Bronchitis Acute J40 Cubital tunnel syndrome, bilateral Acute G56.23 Well woman exam without gynecological exam Acute Z00.00 Bilateral carpal tunnel syndrome Acute G56.03 Carpal tunnel syndrome Acute G56.00 Breast cyst Acute N60.09 Amenorrhea Acute N91.2 Muscle spasm Acute M62.838 Chronic upper back pain Acute M54.9, G89.29 Chronic neck pain Acute M54.2, G89.29 Status post dilation and curettage Acute Z98.890 Muscle pain Acute M79.10 Muscle pain, myofascial Acute M79.18 Adhesive capsulitis of left shoulder Acute M75.02 Chronic obstructive lung disease Chronic J44.9 Chronic fatigue syndrome Acute R53.82 Insomnia disorder Acute G47.00 Mild recurrent major depression Acute F33.0 Tobacco user Acute Z72.0 Anxiety Chronic F41.9 Weight gain Acute R63.5 Dislocation of left shoulder joint Acute S43.005A Superior labrum thgqrtvb-hl-dtaexhsrq (SLAP) tear of left shoulder Acute S43.432A Bursitis of left shoulder Acute M75.52 Medical History Medical History Loss of teeth due to extraction 2018 Idiopathic hypersomnia COVID-19 Surgical History Surgical History S/P myomectomy History of arthroscopy of left shoulder (10/21/22) Tobacco Smoking/Tobacco Use Status: Current every day Tobacco Type: cigarettes Passive smoking exposure: Yes Second hand exposure: Yes Alcohol Alcohol Intake: current Alcohol intake frequency: a few times a month Alcohol type: beer, wine and hard liquor Substance Use Substance use: Daily Substance use type: marijuana Prental History History 5 Para 2 Hx # Term Pregnancies 2 Multiple births Hx # Pregnancies Ectopic pregnancies AB induced Hx Number of Living Children 2 AB spontaneous Vital Signs and Lab Results Vital Signs Most Recent Vital Signs in EMR: Temp Pulse Resp BP Pulse Ox 36.8 C 89 16 108/78 98 10/12/24 14:20 10/12/24 14:20 10/12/24 14:20 10/12/24 14:20 10/12/24 14:20 Lab Results Blood Type / Crossmatch: No Data to Display Complete Blood Count: No Data to Display Complete Metabolic Panel: No Data to Display Liver Function Panel: No Data to Display Coagulation Panel: No Data to Display Cardiac Panel: No Data to Display Arterial Blood Gas: No Data to Display Venous Blood Gas: No Data to Display Pancreas Panel: No Data to Display Thyroid Panel: No Data to Display Infectious Disease: No Data to Display Blood Cultures: No Data to Display Toxicology Panel: No Data to Display Panel: No Data to Display Anesthesia Assessment and Plan Anesthesia History Personal History: No History of Anesthesia Complications Family History: No Family History of Anesthesia Complications Exercise Tolerance Exercise Tolerance: Metabolic Equivalents>4 Cardiac & Pulmonary Exam Cardiac Exam: Normal S1/S2 Heart Sounds Pulmonary Exam: Clear Bilateral Breath Sounds Implantable Cardiac Device Does patient have a Pacemaker or an ICD?: No Airway Exam Known Difficult Airway: No Mallampati Class: 2 Mouth Opening: Normal (> 3cm) Thyromental Distance: Less than 3 cm Neck Range of Motion: Full ROM Neck Circumference: Normal Teeth Condition: Edentulous ASA Classification ASA Score: ASA 2 Emergency Case?: No NPO Status NPO Status: NPO Clears >2 hours, Solids >8 hours Status Status: Negative HCG Anesthesia Plan Resuscitation Status: Full Code Anesthesia Technique: General Anesthesia Airway Planned: LMA Monitors Used: Standard Monitors Preoperative Comments:: 36 yo female for ECTR/cubital tunnel. Sig PMHx: COPD (albuterol, does not use often), smoker (cannabis/tobacco), occ EtOH, anxiety, idiopathic hypersomnia, fibromyalgia (neck gets stiff and sore. feels okay today) Previous Anes: - D/C, prop, natural airway, no issues. - Shoulder scope, prop/dex, garcia 2 grade 1, easy mask.
[2024-10-12] MEDS: Celecoxib 200 MG CAP 400 MG PO (15:05)
[2024-10-12] MEDS: Acetaminophen 500 MG TAB 1000 MG PO (15:05)
[2024-10-12] MEDS: Lactated Ringers 1,000 ML 80 ML IV (15:15)
--- NOTE | 2024-10-12 15:20 | W.PM.DSUDISC ---
Date of service: 10/12/24 Discharge Plan Disposition Patient Disposition: Home Condition: Good Discharge Details Reason For Visit: Left carpal and cubital tunnel syndromes Attending Provider: Tristen Caro Primary Care Provider: Chris Merritt Home Meds and New Rx's Prescriptions: New hydrocodone-acetaminophen 5-325 mg tablet 1 tab PO Q6H PRN (Reason: severe pain) Qty: 6 0RF Rx Instructions: Take one tablet up to every 6 hours as needed for severe postoperative pain Continued ibuprofen 200 mg capsule 200 mg PO Q6H PRN cyclobenzaprine 10 mg tablet 10 mg PO HS PRN (Reason: muscle spasm) Qty: 30 0RF methocarbamol 500 mg tablet 500 mg PO TID Qty: 90 2RF Patient Comments: 10/11/24 2 Tabs HS varenicline tartrate [Chantix Continuing Month Box] 1 mg tablet 1 mg PO BID Qty: 56 3RF norgestimate-ethinyl estradiol [Estarylla] 0.25-35 mg-mcg tablet 1 tab PO HS albuterol sulfate 90 mcg/actuation HFA aerosol inhaler INHALATION Patient Comments: INHALE 2 PUFFS BY MOUTH EVERY 6 HOURS NEEDED FOR SHORTNESS OF BREATH OR WHEEZING duloxetine [Cymbalta] 30 mg capsule,delayed release(DR/EC) 30 mg PO HS Women's One Daily 18 mg iron-400 mcg-500 mg Ca Tablet 1 tab PO DAILY Discharge Instructions Additional Instructions: Cubital Tunnel Decompression Discharge Instructions Activity: You should stay in the sling for the first 2 weeks. You may come out of the sling for gentle motion and hygiene but should largely remain in the sling to allow the incision site to heal. Gentle motion of the elbow, hand, wrist, and fingers is okay and encouraged after the first few days, but no repetitive activites nor heavy lifting. You may apply ice. Medications: - You should take Tylenol and Ibuprofen around the clock. - You have been prescribed Hydrocodone for breakthrough pain. Dressings: - The initial surgical dressing should stay in place for 3 days. It may then be removed and kept clean and dry. You should cover with a light gauze dressing. - You may shower after 3 days and get the wound wet. Follow-up: 10 days Stand Alone Forms: Vania [place] Janet Activity:: Elevate Remove Dressings/Wound Care:: 72 hours Shower/Bathe:: 72 hours Diet:: As Tolerated Discharge Orders Discharge Orders: Discharge Order (Routine); Ordered 10/12/24 Ordered By: Hayde Gustafson
--- NOTE | 2024-10-12 15:40 | W.PREOPHP ---
Assessment and Plan Assessment and plan (1) Cubital tunnel syndrome, bilateral: Status: Acute (2) Bilateral carpal tunnel syndrome: Status: Acute Assessment and plan: Alcira is a 39-year-old female who has left-sided cubital tunnel and carpal tunnel syndrome. She has failed nonoperative options and is here today for release of each. I discussed the technical details of endoscopic carpal tunnel release as well as open cubital tunnel release in the left side. I also discussed the potential for anterior transposition based on nerve instability at the time of decompression. I reviewed the risk to include bleeding, infection, pain, stiffness, continued symptoms, damage nerves and vessels, damage to muscle and tendons, nerve instability, need for repeat procedures. Despite these risk, she elects to proceed. History of Present Illness History of Present Illness Chief Complaint: Left Carpal And Cubital Tunnel Syndrome Narrative: Alcira is a 39-year-old female who has carpal tunnel syndrome and cubital tunnel syndrome of the left side. She also has right-sided symptoms as well. She is here today for her left side. She has failed nonoperative options. She denies any recent illness. She denies any chest pain or shortness of breath. Review of Systems All systems reviewed & are unremarkable except as noted in HPI and below PFSH All Active Problems Bronchitis (Acute) Cubital tunnel syndrome, bilateral (Acute) Well woman exam without gynecological exam (Acute) Bilateral carpal tunnel syndrome (Acute) Carpal tunnel syndrome (Acute) Breast cyst (Acute) Skin, small abscess. Amenorrhea (Acute) Muscle spasm (Acute) Chronic upper back pain (Acute) Chronic neck pain (Acute) Muscle spasms that pull her face down. Status post dilation and curettage (Acute) Hysteroscopy, dilation and curettage with MyoSure removal of endometrial polyp 01/22/2023 Muscle pain (Acute) sees pain management Muscle pain, myofascial (Acute) Adhesive capsulitis of left shoulder (Acute) Chronic obstructive lung disease (Chronic) Chronic fatigue syndrome (Acute) Insomnia disorder (Acute) Mild recurrent major depression (Acute) Tobacco user (Acute) less than pack/day Anxiety (Chronic) Weight gain (Acute) Dislocation of left shoulder joint (Acute) Superior labrum jfrjreaw-bq-reiyvyqtb (SLAP) tear of left shoulder (Acute) Bursitis of left shoulder (Acute) Medical History Loss of teeth due to extraction 2018 Idiopathic hypersomnia COVID-19 Surgical History S/P myomectomy History of arthroscopy of left shoulder (05/17/22) Family History Mother Depression Father , 60 No problems noted. Sister No problems noted. Son No problems noted. Son No problems noted. Social History Smoking/Tobacco Use Status: Current every day Tobacco Type: cigarettes Tobacco: How many years used: 24 Quit status: has quit before Second Hand Exposure: Yes Smoking risk assessment performed?: Yes Alcohol Intake: current Alcohol Intake frequency: a few times a month Alcohol type: beer, wine and hard liquor Drug use: Daily Substance use type: marijuana Counseling given: No Caregiver/Support person: No Household members: significant other and children Housing: house Communication Needs: None Do you need help understanding health information?: Rarely Pets and animals: Yes Pets and animals: cat(s), dog(s), fish, snake(s) and other Sexually active: Yes Do you think of yourself as: straight/heterosexual Current gender identity: female What is your relationship status?: living with partner How often do you talk on the phone with friends or family?: once per week How often do you get together with friends or relatives?: never Do you belong to any clubs or organized social groups?: no Panel score (0-1 are the most socially isolated patients): 1 What type of physical activity do you participate in: walking Duration: 15-30 minutes/day Frequency: 3-4 times per week Lori/Gnosticist: Kristel Special lori needs: No Seatbelt use: always Helmet use: Yes Helmet use: always Drive intox or ride w/intox cryogenic transport driver: No Additional Social history: UTAP History History 5 Para 2 Hx # Term Pregnancies 2 Multiple births Hx # Pregnancies Ectopic pregnancies AB induced Hx Number of Living Children 2 AB spontaneous Meds Allergies and Home Medications Allergies Allergy/AdvReac Type Severity Reaction Status Date / Time adhesive tape Allergy Skin Rash Verified 10/12/24 14:53 silver (From Tegaderm AG Allergy Skin Rash Verified 10/12/24 14:53 Mesh) amoxicillin AdvReac Nausea Verified 10/12/24 14:33 Home Medications ?Medication ?Instructions ?Recorded ?Confirmed ?Type multivit-iron 18 mg-folic acid 400 1 tab PO DAILY 08/16/21 10/12/24 History mcg-calcium 500 mg-minerals tablet (Women's One Daily) ibuprofen 200 mg capsule 200 mg PO Q6H PRN 08/07/22 10/12/24 History methocarbamol 500 mg tablet 500 mg PO TID #90 tabs 07/08/24 10/12/24 Rx cyclobenzaprine 10 mg tablet 10 mg PO HS PRN muscle spasm #30 09/02/24 10/12/24 Rx tabs varenicline tartrate 1 mg tablet 1 mg PO BID #56 tabs 10/06/24 10/12/24 Rx (Chantix Continuing Month Box) albuterol sulfate 90 mcg/actuation inhalation 10/12/24 History aerosol inhaler duloxetine 30 mg capsule,delayed 30 mg PO HS 10/12/24 10/12/24 History release (Cymbalta) hydrocodone 5 mg-acetaminophen 325 1 tab PO Q6H PRN severe pain #6 10/12/24 Rx mg tablet tabs norgestimate 0.25 mg-ethinyl 1 tab PO HS 10/12/24 10/12/24 History estradiol 35 mcg tablet (Estarylla) Exam Const General: cooperative Resp Effort & Inspection: normal respiratory effort Auscultation: clear to auscultation bilaterally Cardio Rate: regular rate Rhythm: regular rhythm Results Last Vital Signs Temp 36.8 C 10/12/24 14:20 Pulse 89 10/12/24 14:20 Resp 16 10/12/24 14:20 BP 108/78 10/12/24 14:20 Pulse Ox 98 10/12/24 14:20
[2024-10-12] MEDS: ceFAZolin 2 GM/50 ML BAG IVPB (15:41)
[2024-10-12] MEDS: TRANEXAMIC ACID/SOD. CHL. 1,000 MG/100 ML BAG 600 MG IVPB (15:43)
[2024-10-12] MEDS: Bupivacaine 0.25% Pres-Free W/EPI 30 ML VIAL (16:26)
--- NOTE | 2024-10-12 16:58 | W.ANESPOSTOP ---
Postoperative Evaluation Date, Time and Location Date Performed: 10/12/24 Time Performed: 16:58 Patient Location: PACU Vital Signs Most Recent Imported Vital Signs: Most Recent Vital Signs Temp Pulse Resp BP Pulse Ox 36.3 C L 80 15 100/63 95 10/12/24 16:53 10/12/24 16:51 10/12/24 16:51 10/12/24 16:50 10/12/24 16:51 Pain Score Most Recent Pain Score: Most Recent Pain Score Pain Level 0 10/12/24 16:53 Assessment Mental Status: Awake (Alert & Oriented to Patient Baseline) Airway and Respiratory Function: Patent airway with normal (patient baseline) respiratory exam Cardiovascular Function: Hemodynamically Stable Hydration Status: Adequately Hydrated Nausea & Vomiting: No Nausea or Vomiting Pain: Pain is tolerable per patient Peripheral Nerve Block: Patient did not receive a nerve block
[2024-10-12] MEDS: HYDROcodone 5/Acetaminophen 325 TAB PO (17:20)
--- NOTE | 2024-10-12 17:55 | ROE_ITS ---
Operative Note Operative Note PRE-OP DIAGNOSIS: Left Carpal Tunnel and Left Cubital Tunnel Syndrome POST-OP DIAGNOSIS: same PROCEDURE: Left Endoscopic Carpal Tunnel Release and Left Cubital Tunnel Decompression with Anterior Subcutaneous Transposition SURGEON: Tristen Caro HYPERBARIC TECHNICIAN: John Paul Vega ANESTHESIA TYPE: General LMA/ETT Refer to Anesthesia Record ESTIMATED BLOOD LOSS: 5 PATHOLOGY: none sent TOURNIQUET TIME: 23 COMPLICATIONS: None Patient was transported to: PACU Patient's condition: stable Indications: Alcira is a 39 year old female who has had symptoms of carpal and cubital tunnel syndrome. Nonoperative treatment options had been trialed. Nerve conduction studies identified the carpal and cubital tunnel as the point of compression. Given failure of nonoperative treatments and persistent symptoms, I offered operative intervention. I reviewed the technical details of a carpal tunnel release and cubital tunnel decompression with possible anterior subcutaneous transposition. I reviewed the risk of the procedure to include bleeding, infection, pain, stiffness, nerve instability, damage to superficial nerves, persistent symptoms, and incomplete release. Despite these risks, the patient elected to proceed. Findings: The carpal tunnel was release with a standard endoscopic technique without difficulty and excellent visualization. There was a tightened cubital tunnel. The ulnar nerve was release from the first motor branch distally through the [place] proximally and was transposed anteriorly. Procedure Description: Alcira was greeted in the preoperative holding area where the correct side was identified and marked. The consent was reviewed with the patient and signed. The history and physical was updated. All questions were answered. She was taken back to the operating room. The patient was placed into the supine position on the operating room table with the left arm on an arm board. A nonsterile tourniquet was placed high onto the arm, into the axilla. All bony prominences were well padded. Prophylactic antibiotics in the form of Cefazolin were administered. The right arm was then prepped with Chloraprep and draped in a standard fashion with stockinette and extremity drape. A timeout to confirm correct identity, side and site, procedure, allergies, anesthesia, and medical concerns was performed. The surgical site was marked in the volar wrist creases in line with the radial border of the fourth ray. This area was anesthetized with approximately 6cc of 1% Lidocaine with Epinephrine. The surgical site about the medial elbow was drawn on the skin just posterior to the medial epicondyle borders. The planned surgical field was anesthetized with 1% Lidocaine with Epinephrine. The limb was then exsanguinated with an Esmarch. Starting with the carpal tunnel, the skin was incised with a 15 blade, approximately 1cm. The skin only was cut and the deeper tissue was dissected bluntly with a tenotomy scissor, avoiding passing nerve and venous structures. The fascia was penetrated and opened bluntly. A two-prong skin hook was placed under this proximal fascial edge. A series of hamate finders were used to identify and dilate the carpal tunnel. Synovial elevator was used to free synovial attachments to the underside of the transverse carpal ligament. My thumb was kept in the palm to alix the distal extent of the carpal tunnel and correctly position the hand. The Microaire endoscope was inserted without difficulty and without resistance. Excellent visualization showed horizontally running fibers of the transverse carpal ligament (TCL). The distal extent of the TCL was visualized and the end of the scope palpated with the thumb. The blade was elevated and withdrawn from distal to proximal. The TCL was split into two flaps. The endoscope was reinserted to confirm complete release and any remnant ligament was incised. The scope was withdrawn and the proximal aspect of the carpal tunnel was grossly inspected and appeared release with the median nerve visible. The antebrachial fascia at the level of the wrist was then freed from the overlying skin and then the underlying median nerve with blunt dissection. This was transected longitudinally for about 3cm proximal to the wrist incision. The wound was then irrigated with easy flow of irrigant distally and proximally. The incision was closed with a single 4-0 Nylon suture. . Attention was then turned to the cubital tunnel release. The skin of the medial elbow was incised only with the elbow in some flexion and on a bump. The deep tissue and subcutaneous fat was dissected with a tenotomy scissors trying to protect any branches of the medial antebrachial cutaneous nerve. Any branches that were identified were retracted out of the way. The ulnar nerve was palpated and identified. A small window into the cubital tunnel, sheath overlying the nerve, was created and the nerve was able to be palpated with the [place]. A Metzenbaum scissor was then used to open up the she ath starting with Amanda's ligament. I then worked distal over the ulnar nerve releasing any constraints against the nerve all the way to the fascia of the FCU muscle belly. This muscle belly was bluntly all the way down to the first motor branch of the ulnar nerve and the overlying fascia was incised. Likewise starting there at the medial epicondyle, I proceeded to work proximally to release any constraints over the ulnar nerve. This was taken all the way to the arcade of [place]. The medial intermuscular septum was also palpated and any sharp edges against the ulnar nerve were resected and released. After fully releasing the nerve it was inspected visually. I was also able to palpate the nerve fully and reach one finger up into the proximal and distal aspects to make sure there were no constraints against the nerve. A freer elevator was also used to slide easily against the ulnar nerve without any points of constriction. The arm was then taken through range of motion. The ulnar nerve did sublux/dislocate out of its groove behind the medial epicondyle. The nerve was fully released. A vessel loop was double behind the nerve for help with mobilization. I then elevated a flap of fascial tissue from the flexor pronator origin, base over the edge of the medial epicondyle. The nerve is then moved anteriorly. A portion of the insertion of the flexor carpi ulnaris was released to avoid pressure from the nerve. I then held the nerve anteriorly and tied the fascial flap against the dermis underlying the location of the medial epicondyle. This secured the nerve and anterior position. The nerve was inspected and showed no other signs of compression. A [place] elevator was easily able to pass along the length of the nerve. The tourniquet was then deflated. Any areas of bleeding were cauterized with bipolar electrocautery. The wound was thoroughly irrigated. The deep tissue was closed with a 3-0 Vicryl. The skin was closed with a 4-0 nylon. The wounds were dressed with Xeroform, 4 x 4's, ABD, Kerlix and an Juan wrap. Alcira was placed into a sling. She was transferred back to the PACU in a stable condition. Date of Procedure: 10/12/24
== END 2024-10-12 18:00 | disposition home or self-care (01) ==
PROVIDERS: PCP Nurse Practitioner Family; Visit Provider Student in an Organized Health Care Education/Training Program
PROC: 01N54ZZ Release Median Nerve, Percutaneous Endoscopic Approach (ICD-10-PCS; CPT 29848; principal; 2024-10-12 17:15)
PROC: (CPT 64718; 2024-10-12 17:15)
DX: G56.23 Lesion of ulnar nerve, bilateral upper limbs (principal); G56.03 Carpal tunnel syndrome, bilateral upper limbs
CPT/HCPCS: 64718; 29848; 81025; J0690; J1100; J2003; J2405; J2704; J3010

== ENCOUNTER 2024-11-10 09:49 | Day surgery (SDC) | payer MEDICAID, SELFPAY ==
[2024-11-10] VITALS (16 sets, daily range): BP systolic 97–117; BP diastolic 56–80; PULSE 53–79; RESP 14–17; TEMP 36–36.4; O2SAT 74–99; BMI 31.7
[2024-11-10] MEDS: Lactated Ringers 1,000 ML 80 ML IV (10:24)
[2024-11-10] MEDS: Acetaminophen 500 MG TAB 1000 MG PO (10:28)
[2024-11-10] MEDS: Celecoxib 200 MG CAP 400 MG PO (10:28)
--- NOTE | 2024-11-10 11:46 | W.ANESPRE ---
General Info Date of Service Date Performed: 11/10/24 Height: 5 ft 4 in Weight: 83.8 kg Body Mass Index (BMI): 31.7 Surgical Procedure: Operation Date: 11/10/24 13:25 Proposed Procedure Side Surgeon p Wrist ECTR Right Tristen Caro MD s Cubital Tunnel Release Right Tristen Caro MD Meds Allergies and Home Medications Allergies Allergy/AdvReac Type Severity Reaction Status Date / Time adhesive tape Allergy Skin Rash Verified 11/10/24 10:10 silver (From Tegaderm AG Allergy Skin Rash Verified 11/10/24 10:10 Mesh) amoxicillin AdvReac Nausea Verified 11/10/24 10:10 Home Medication ?Medication ?Instructions ?Recorded multivit-iron 18 mg-folic acid 400 1 tab PO DAILY 08/16/21 mcg-calcium 500 mg-minerals tablet (Women's One Daily) ibuprofen 200 mg capsule 200 mg PO Q6H PRN 08/07/22 methocarbamol 500 mg tablet 500 mg PO TID #90 tabs 07/08/24 cyclobenzaprine 10 mg tablet 10 mg PO HS PRN muscle spasm #30 09/02/24 tabs varenicline tartrate 1 mg tablet 1 mg PO BID #56 tabs 10/06/24 (Chantix Continuing Month Box) albuterol sulfate 90 mcg/actuation 2 inh inhalation DIRECTED PRN 10/12/24 aerosol inhaler duloxetine 30 mg capsule,delayed 30 mg PO HS 10/12/24 release (Cymbalta) norgestimate 0.25 mg-ethinyl 1 tab PO HS 10/12/24 estradiol 0.035 mg tablet (Estarylla) Current Visit Medications: Current Medications Generic Name Dose Route Start Last Admin Trade Name Freq PRN Reason Stop Dose Admin Acetaminophen 1,000 mg 11/10/24 06:00 11/10/24 10:28 Acetaminophen 500 Mg Tab PO 11/10/24 23:59 1,000 mg PREOP LUIS ALBERTO Administration Celecoxib 400 mg 11/10/24 06:00 11/10/24 10:28 Celecoxib 200 Mg Cap PO 11/10/24 23:59 400 mg PREOP LUIS ALBERTO Administration Ringer's Solution 1,000 mls @ 80 mls/hr 11/10/24 06:00 11/10/24 10:24 IV 04/16/25 23:59 80 mls/hr INFUSION LUIS ALBERTO Administration Cefazolin Sodium/Dextrose 2 gm in 50 mls @ 100 mls/hr 11/10/24 06:00 Ancef Duplex IVPB 11/10/24 23:59 PREOP LUIS ALBERTO Tranexamic Acid/Sodium Chloride 1,000 mg in 100 mls @ 600 mls/hr 11/10/24 06:00 IVPB 11/10/24 23:59 PREOP LUIS ALBERTO IV Miscellaneous Supplies 1 each 11/10/24 06:00 Iv Access IV 11/10/24 23:59 DIRECTED LUIS ALBERTO Sodium Chloride 0 ml 11/10/24 06:00 Normal Saline Flush 10 Ml Syr IV 11/10/24 23:59 PRN PRN Sodium Chloride 0 ml 11/10/24 06:00 Normal Saline 10 Ml Vial IJ 11/10/24 23:59 DIRECTED PRN Sterile Water 0 ml 11/10/24 06:00 Water,Injection,Sterile 10 Ml Vial IJ 11/10/24 23:59 DIRECTED PRN PFSH Active Problems Active Problems: Problem Status Onset Code Bronchitis Acute J40 Cubital tunnel syndrome, bilateral Chronic G56.23 Well woman exam without gynecological exam Acute Z00.00 Bilateral carpal tunnel syndrome Acute G56.03 Carpal tunnel syndrome Acute G56.00 Breast cyst Acute N60.09 Amenorrhea Acute N91.2 Muscle spasm Acute M62.838 Chronic upper back pain Acute M54.9, G89.29 Chronic neck pain Acute M54.2, G89.29 Status post dilation and curettage Acute Z98.890 Muscle pain Acute M79.10 Muscle pain, myofascial Acute M79.18 Adhesive capsulitis of left shoulder Acute M75.02 Chronic obstructive lung disease Chronic J44.9 Chronic fatigue syndrome Acute R53.82 Insomnia disorder Acute G47.00 Mild recurrent major depression Acute F33.0 Tobacco user Acute Z72.0 Anxiety Chronic F41.9 Weight gain Acute R63.5 Dislocation of left shoulder joint Acute S43.005A Superior labrum vuxzywau-vu-dnqmgikzx (SLAP) tear of left shoulder Acute S43.432A Bursitis of left shoulder Acute M75.52 Medical History Medical History Loss of teeth due to extraction 2018 Idiopathic hypersomnia COVID-19 Surgical History Surgical History S/P myomectomy History of arthroscopy of left shoulder (05/17/22) Tobacco Smoking/Tobacco Use Status: Current every day Tobacco Type: cigarettes Passive smoking exposure: Yes Second hand exposure: Yes Alcohol Alcohol Intake: current Alcohol intake frequency: a few times a month Alcohol type: beer, wine and hard liquor Substance Use Substance use: Daily Substance use type: marijuana Prental History History 5 Para 2 Hx # Term Pregnancies 2 Multiple births Hx # Pregnancies Ectopic pregnancies AB induced Hx Number of Living Children 2 AB spontaneous Vital Signs and Lab Results Vital Signs Most Recent Vital Signs in EMR: Most Recent Vital Signs Temp Pulse Resp BP Pulse Ox 36 C L 74 16 115/74 74 L 11/10/24 09:55 11/10/24 09:55 11/10/24 09:55 11/10/24 09:55 11/10/24 09:55 Point of Care Results Point of Care Results: POC- Test(urine) Negative 11/10/24 10:35 Lab Results Blood Type / Crossmatch: No Data to Display Complete Blood Count: No Data to Display Complete Metabolic Panel: No Data to Display Liver Function Panel: No Data to Display Coagulation Panel: No Data to Display Cardiac Panel: No Data to Display Arterial Blood Gas: No Data to Display Venous Blood Gas: No Data to Display Pancreas Panel: No Data to Display Thyroid Panel: No Data to Display Infectious Disease: No Data to Display Blood Cultures: No Data to Display Toxicology Panel: No Data to Display Panel: No Data to Display Anesthesia Assessment and Plan Anesthesia History Personal History: No History of Anesthesia Complications Family History: No Family History of Anesthesia Complications Exercise Tolerance Exercise Tolerance: Metabolic Equivalents>4 Pertinent Negatives Pertinent Negatives: No Symptoms of GERD, No Major Cardiovascular Symptoms or Complaints and No Major Pulmonary Symptoms or Complaints Cardiac & Pulmonary Exam Cardiac Exam: Normal S1/S2 Heart Sounds Pulmonary Exam: Clear Bilateral Breath Sounds Implantable Cardiac Device Does patient have a Pacemaker or an ICD?: No Airway Exam Known Difficult Airway: No Mallampati Class: 2 Mouth Opening: Normal (> 3cm) Thyromental Distance: Less than 3 cm Neck Range of Motion: Full ROM Neck Circumference: Normal Teeth Condition: Edentulous ASA Classification ASA Score: ASA 2 Emergency Case?: No NPO Status NPO Status: NPO Clears >2 hours, Solids >8 hours Status Status: Negative HCG Anesthesia Plan Resuscitation Status: Full Code Anesthesia Technique: General Anesthesia Airway Planned: LMA Monitors Used: Standard Monitors
--- NOTE | 2024-11-10 12:17 | W.PM.DSUDISC ---
Date of service: 11/10/24 Discharge Plan Disposition Patient Disposition: Home Condition: Good Discharge Details Reason For Visit: R ECTR/cubital tunnel release Attending Provider: Tristen Caro Primary Care Provider: Chris Merritt Home Meds and New Rx's Prescriptions: New hydrocodone-acetaminophen 5-325 mg tablet 1 tab PO Q6H PRN (Reason: pain) Qty: 6 0RF acetaminophen 500 mg tablet 500 mg PO TID Qty: 90 0RF ibuprofen 600 mg tablet 600 mg PO TID PRN (Reason: pain) Qty: 90 0RF Continued cyclobenzaprine 10 mg tablet 10 mg PO HS PRN (Reason: muscle spasm) Qty: 30 0RF methocarbamol 500 mg tablet 500 mg PO TID Qty: 90 2RF Patient Comments: 10/11/24 2 Tabs HS varenicline tartrate [Chantix Continuing Month Box] 1 mg tablet 1 mg PO BID Qty: 56 3RF norgestimate-ethinyl estradiol [Estarylla] 0.25-35 mg-mcg tablet 1 tab PO HS albuterol sulfate 90 mcg/actuation HFA aerosol inhaler 2 inh INHALATION DIRECTED PRN Patient Comments: INHALE 2 PUFFS BY MOUTH EVERY 6 HOURS NEEDED FOR SHORTNESS OF BREATH OR WHEEZING duloxetine [Cymbalta] 30 mg capsule,delayed release(DR/EC) 30 mg PO HS Women's One Daily 18 mg iron-400 mcg-500 mg Ca Tablet 1 tab PO DAILY Discontinued ibuprofen 200 mg capsule 200 mg PO Q6H PRN Discharge Instructions Additional Instructions: Cubital Tunnel Decompression Discharge Instructions Activity: You should stay in the sling for the first 2 weeks. You may come out of the sling for gentle motion and hygiene but should largely remain in the sling to allow the incision site to heal. Gentle motion of the elbow, hand, wrist, and fingers is okay and encouraged after the first few days, but no repetitive activites nor heavy lifting. You may apply ice. Medications: - You should take Tylenol and Ibuprofen around the clock. - You have been prescribed Hydrocodone for breakthrough pain. Dressings: - The initial surgical dressing should stay in place for 3 days. It may then be removed and kept clean and dry. You should cover with a light gauze dressing. - You may shower after 3 days and get the wound wet. Follow-up: 10 days Stand Alone Forms: Vania [place] Tunnel Release Equipment/Supplies: Sling Activity:: Elevate Remove Dressings/Wound Care:: 72 hours Shower/Bathe:: 72 hours Diet:: As Tolerated Discharge Orders Discharge Orders: Discharge Order (Routine); Ordered 11/10/24 Ordered By: Wesley Addison DS: Diagnosis Discharge Diagnosis (1) Cubital tunnel syndrome, bilateral: Status: Chronic
[2024-11-10] MEDS: ceFAZolin 2 GM/50 ML BAG IVPB (12:20)
[2024-11-10] MEDS: TRANEXAMIC ACID/SOD. CHL. 1,000 MG/100 ML BAG 600 MG IVPB (12:29)
[2024-11-10] MEDS: Bupivacaine 0.25% Pres-Free W/EPI 30 ML VIAL (12:44)
--- NOTE | 2024-11-10 14:59 | ROE_ITS ---
Operative Note Operative Note PRE-OP DIAGNOSIS: Right Carpal Tunnel and Right Cubital Tunnel Syndrome POST-OP DIAGNOSIS: same PROCEDURE: Right Endoscopic Carpal Tunnel Release and Right Cubital Tunnel Decompression with Anterior Subcutaneous Transposition SURGEON: Tristen Caro ANESTHESIA TYPE: General LMA/ETT Refer to Anesthesia Record ESTIMATED BLOOD LOSS: 5 PATHOLOGY: none sent TOURNIQUET TIME: 30 COMPLICATIONS: None Patient was transported to: PACU Patient's condition: stable Indications: Alcira is a 39-year-old female who has had symptoms of carpal and cubital tunnel syndrome. Nonoperative treatment options had been trialed. She had successful cubital and carpal tunnel release on the left side and is here today for her right sided symptoms. Given failure of nonoperative treatments and persistent symptoms, I offered operative intervention. I reviewed the technical details of a carpal tunnel release and cubital tunnel decompression with possible anterior subcutaneous transposition. I reviewed the risk of the procedure to include bleeding, infection, pain, stiffness, nerve instability, damage to superficial nerves, persistent symptoms, and incomplete release. Despite these risks, the patient elected to proceed. Findings: The carpal tunnel was release with a standard endoscopic technique without difficulty and excellent visualization. There was a tightened cubital tunnel. There was extra muscle within the cubital tunnel, consistent with an anconeus epitrochlearis. The ulnar nerve was release from the first motor branch distally through the [place] of [place] proximally. Due to nerve instability of the ulnar nerve was transposed subcutaneously and a adipose fascial flap was created. Procedure Description: Alcira was greeted in the preoperative holding area where the correct side was identified and marked. The consent was reviewed with the patient and signed. The history and physical was updated. All questions were answered. She was taken back to the operating room. The patient was placed into the supine position on the operating room table with the right arm on an arm board. A nonsterile tourniquet was placed high onto the arm, into the axilla. All bony prominences were well padded. Prophylactic antibiotics in the form of Cefazolin were administered. The right arm was then prepped with Chloraprep and draped in a standard fashion with stockinette and extremity drape. A timeout to confirm correct identity, side and site, procedure, allergies, anesthesia, and medical concerns was performed. The surgical site was marked in the volar wrist creases in line with the radial border of the fourth ray. This area was anesthetized with approximately 6cc of 1% Lidocaine with Epinephrine. The surgical site about the medial elbow was drawn on the skin just posterior to the medial epicondyle borders. The planned surgical field was anesthetized with 1% Lidocaine with Epinephrine. The limb was then exsanguinated with an Esmarch. Starting with the carpal tunnel, the skin was incised with a 15 blade, approximately 1cm. The skin only was cut and the deeper tissue was dissected bluntly with a tenotomy scissor, avoiding passing nerve and venous structures. The fascia was penetrated and opened bluntly. A two-prong skin hook was placed under this proximal fascial edge. A series of hamate finders were used to identify and dilate the carpal tunnel. Synovial elevator was used to free synovial attachments to the underside of the transverse carpal ligament. My thumb was kept in the palm to alix the distal extent of the carpal tunnel and correctly position the hand. The Microaire endoscope was inserted without difficulty and without resistance. Excellent visualization showed horizontally running fibers of the transverse carpal ligament (TCL). The distal extent of the TCL was visualized and the end of the scope palpated with the thumb. The blade was elevated and withdrawn from distal to proximal. The TCL was split into two flaps. The endoscope was reinserted to confirm complete release and any remnant ligament was incised. The scope was withdrawn and the proximal aspect of the carpal tunnel was grossly inspected and appeared release with the median nerve visible. The antebrachial fascia at the level of the wrist was then freed from the overlying skin and then the underlying median nerve with blunt dissection. This was transected longitudinally for about 3cm proximal to the wrist incision. The wound was then irrigated with easy flow of irrigant distally and proximally. The incision was closed with a single 4-0 Nylon suture. . Attention was then turned to the cubital tunnel release. The skin of the medial elbow was incised only with the elbow in some flexion and on a bump. The deep tissue and subcutaneous fat was dissected with a tenotomy scissors trying to protect any branches of the medial antebrachial cutaneous nerve. Any branches that were identified were retracted out of the way. The ulnar nerve was palpated and identified. A small window into the cubital tu nnel, sheath overlying the nerve, was created and the nerve was able to be palpated with the [place]. A Metzenbaum scissor was then used to open up the sheath starting with Amanda's ligament. I then worked distal over the ulnar nerve releasing any constraints against the nerve all the way to the fascia of the FCU muscle belly. This muscle belly was bluntly all the way down to the first motor branch of the ulnar nerve and the overlying fascia was incised. Likewise starting there at the medial epicondyle, I proceeded to work proximally to release any constraints over the ulnar nerve. This was taken all the way to the arc[place] of [place]. The medial intermuscular septum was also palpated and any sharp edges against the ulnar nerve were resected and released. After fully releasing the nerve it was inspected visually. I was also able to palpate the nerve fully and reach one finger up into the proximal and distal aspects to make sure there were no constraints against the nerve. A freer elevator was also used to slide easily against the ulnar nerve without any points of constriction. The arm was then taken through range of motion. The ulnar nerve did sublux/dislocate out of its groove behind the lateral epicondyle. The nerve is released from any adhesions. A vessel loop was placed around the nerve to help with mobilization although no traction was placed on the vessel loop. Adhesions were released from the nerve proximally and distally. The nerve is moved anteriorly where show did have some tension against the nerve with the medial intermuscular septum which was resected. There is no other point compression identified. I then raised a flap of fascial tissue from the flexor pronator origin, hinged off of its insertion to the medial epicondyle. The nerve is then moved anteriorly and held there while the fascial flap was secured to the deep dermal layer and surrounding fat tissue utilizing a #2-0 Vicryl. 2 of the sutures were placed which created a sling. A [place] elevator was placed against the nerve and ran smoothly through this new anterior position without any signs of compression and no adherence of the fascial flap to the nerve itself. The nerve was inspected proximally distally did not show any signs of secondary compression. The tourniquet was then deflated. Any areas of bleeding were cauterized with bipolar electrocautery. The wound was thoroughly irrigated. The deep tissue was closed with a 3-0 Vicryl. The skin was closed with a 4-0 nylon. The wounds were dressed with Xeroform, 4 x 4's, ABD, Kerlix and an Juan wrap. Alcira was transferred back to the PACU in a stable condition. Date of Procedure: 11/10/24
--- NOTE | 2024-11-10 15:51 | W.ANESPOSTOP ---
Postoperative Evaluation Date, Time and Location Date Performed: 11/10/24 Time Performed: 14:40 Patient Location: Day Surgery Unit Vital Signs Most Recent Imported Vital Signs: Most Recent Vital Signs Temp Pulse Resp BP Pulse Ox 36.2 C L 60 16 117/76 96 11/10/24 14:40 11/10/24 14:40 11/10/24 14:40 11/10/24 14:40 11/10/24 14:40 Pain Score Most Recent Pain Score: Most Recent Pain Score Pain Level 0 11/10/24 14:40 Assessment Mental Status: Awake (Alert & Oriented to Patient Baseline) Airway and Respiratory Function: Patent airway with normal (patient baseline) respiratory exam Cardiovascular Function: Hemodynamically Stable Hydration Status: Adequately Hydrated Nausea & Vomiting: No Nausea or Vomiting Pain: Pt. Denies Any Pain Peripheral Nerve Block: Patient did not receive a nerve block
== END 2024-11-10 15:02 | disposition home or self-care (01) ==
PROVIDERS: PCP Nurse Practitioner Family; Visit Provider Student in an Organized Health Care Education/Training Program
PROC: 01N54ZZ Release Median Nerve, Percutaneous Endoscopic Approach (ICD-10-PCS; CPT 29848; principal; 2024-11-10 13:15)
PROC: (CPT 64718; 2024-11-10 13:15)
DX: G56.21 Lesion of ulnar nerve, right upper limb (principal); G56.01 Carpal tunnel syndrome, right upper limb
CPT/HCPCS: 64718; 29848; 81025; J0690; J1100; J2003; J2371; J2405; J2704

== ENCOUNTER 2024-12-08 03:26 | Outpatient (CLI) | payer MEDICAID, SELFPAY ==
[2024-12-08 11:53] LABS: ESR 14 mm/hr (0-20)
[2024-12-08 12:58] LABS: C-Reactive Protein 0.55 mg/dL (<or=0.5)
== END 2024-12-08 03:27 | disposition home or self-care (01) ==
LOC: LBO 03:26
PROVIDERS: PCP Nurse Practitioner Family; Visit Provider Nurse Practitioner Family
DX: M79.18 Myalgia, other site (principal)
CPT/HCPCS: 36415; 85652; 86140

== ENCOUNTER 2025-03-09 13:47 | Emergency (ER) | payer MEDICAID, SELFPAY ==
[2025-03-09 13:56] VITALS: BP 116/78; PULSE 105; RESP 18; TEMP 37.2; O2SAT 95
--- NOTE | 2025-03-09 14:12 | W.ED.GENAD ---
Discharge Plan Disposition Patient Disposition: Home Condition: Stable Discharge Details Clinical Impression: Parotid sialolithiasis Primary Care Provider: Chris Merritt ED Provider: Dorian Donald Home Meds and New Rx's Prescriptions: New clindamycin HCl [Cleocin HCl] 150 mg capsule 150 mg PO TID Qty: 30 0RF Continued duloxetine [Cymbalta] 60 mg capsule,delayed release(DR/EC) 60 mg PO DAILY Qty: 90 3RF cyclobenzaprine 10 mg tablet 10 mg PO HS Qty: 90 3RF biotin-keratin [Biotin Plus Keratin] 10,000-100 mcg-mg tablet 1 tab PO DAILY varenicline tartrate [Chantix Continuing Month Box] 1 mg tablet 1 mg PO BID Qty: 56 3RF gabapentin 100 mg capsule 100 mg PO TID Qty: 360 3RF albuterol sulfate 90 mcg/actuation HFA aerosol inhaler 2 inh INHALATION DIRECTED PRN Patient Comments: INHALE 2 PUFFS BY MOUTH EVERY 6 HOURS NEEDED FOR SHORTNESS OF BREATH OR WHEEZING acetaminophen 500 mg tablet 500 mg PO TID Qty: 90 0RF ibuprofen 600 mg tablet 600 mg PO TID PRN (Reason: pain) Qty: 90 0RF prednisone 10 mg tablet 10 mg PO DAILY Women's One Daily 18 mg iron-400 mcg-500 mg Ca Tablet 1 tab PO DAILY Discharge Instructions Instructions: Salivary Gland Stones Referrals: Chris Merritt, SOFTWARE COMPUTER SPECIALIST [Primary Care Provider, Medicine] - 03/10/25 Discharge Data Discharge Date/Time-TO BE ENTERED AT DEPARTURE: 03/09/25 15:14 Discharge Physician: Dorian Donald HPI General Date/Time Provider Initiated Documentation: 03/09/25 13:48. HPI Narrative: Patient presents emergency department complaining of left facial swelling that started all of a sudden she does not have any teeth and was wonder why reports mild pain no fever no chills. Related Data Home Medications ?Medication ?Instructions ?Recorded ?Confirmed multivit-iron 18 mg-folic acid 400 1 tab PO DAILY 08/16/21 03/09/25 mcg-calcium 500 mg-minerals tablet (Women's One Daily) varenicline tartrate 1 mg tablet 1 mg PO BID #56 tabs 10/06/24 03/09/25 (Chantix Continuing Month Box) albuterol sulfate 90 mcg/actuation 2 inh inhalation DIRECTED PRN 10/12/24 03/09/25 aerosol inhaler acetaminophen 500 mg tablet 500 mg PO TID #90 tabs 11/10/24 03/09/25 ibuprofen 600 mg tablet 600 mg PO TID PRN pain #90 tabs 11/10/24 03/09/25 duloxetine 60 mg capsule,delayed 60 mg PO DAILY #90 caps 12/03/24 03/09/25 release (Cymbalta) cyclobenzaprine 10 mg tablet 10 mg PO HS muscle spasm #90 tabs 12/17/24 03/09/25 gabapentin 100 mg capsule 100 mg PO TID #360 caps 02/09/25 03/09/25 biotin 10,000 mcg-keratin 100 mg 1 tab PO DAILY 03/03/25 03/09/25 tablet (Biotin Plus Keratin) clindamycin HCl 150 mg capsule 150 mg PO TID #30 caps 03/09/25 (Cleocin HCl) prednisone 10 mg tablet 10 mg PO DAILY 03/09/25 03/09/25 Previous Rx's ?Medication ?Instructions ?Recorded varenicline tartrate 1 mg tablet 1 mg PO BID #56 tabs 10/06/24 (Chantix Continuing Month Box) acetaminophen 500 mg tablet 500 mg PO TID #90 tabs 11/10/24 ibuprofen 600 mg tablet 600 mg PO TID PRN pain #90 tabs 11/10/24 duloxetine 60 mg capsule,delayed 60 mg PO DAILY #90 caps 12/03/24 release (Cymbalta) cyclobenzaprine 10 mg tablet 10 mg PO HS muscle spasm #90 tabs 12/17/24 gabapentin 100 mg capsule 100 mg PO TID #360 caps 02/09/25 clindamycin HCl 150 mg capsule 150 mg PO TID #30 caps 03/09/25 (Cleocin HCl) Allergies Allergy/AdvReac Type Severity Reaction Status Date / Time adhesive tape Allergy Skin Rash Verified 03/09/25 14:01 silver (From Tegaderm AG Allergy Skin Rash Verified 03/09/25 14:01 Mesh) amoxicillin AdvReac Nausea Verified 03/09/25 14:01 General Stated Complaint: FacialProb JOESPH: 4 Review of Systems Narrative: Review of Systems: Constitutional: No fevers, chills, sweats Eye: No recent visual problems ENT: No ear pain, nasal congestion, sore throat Respiratory: No shortness of breath, cough Cardiovascular: No Chest pain, palpitations, syncope Gastrointestinal: No nausea, vomiting, diarrhea Genitourinary: No hematuria Vinay/Lymph: Negative for bruising tendency, swollen lymph glands Endocrine: Negative for excessive thirst, excessive hunger Musculoskeletal: No back pain, neck pain, joint pain, muscle pain, decreased range of motion Integumentary: No rash, pruritus, abrasions Neurologic: Alert & oriented X 4 Psychiatric: No anxiety, depression Exam Narrative Exam Narrative: Exam; vitals signs as reported above normal Constitutional; In no acute distress, afebrile General: cooperative, healthy appearing, comfortable and no acute distress HEENT: Head: normal to inspection, no palpable skull fracture and normocephalic atraumatic Eyes: : appearance normal, both eyes and all related structures EOM intact bilaterally Pupils: PERRL : conjunctiva normal Direct ophthalmoscopy: normal light reflex, normal conjunctiva, normal visual acuity Ears: Normal TM, normal external canal Nose: normal no rhinorreha Left facial swelling at the level of the parotid gland but no tenderness no erythema oral mucosa normal no erythema she is a edentulous Neck no JVD, supple non tender Neck: normal visual inspection, full ROM and no lymphadenopathy Chest: normal inspection of the chest Respiratory : normal respiratory effort and able to speak in complete sentences no wheezing no rales Cardio Rate: regular rate, rhythm: regular rhythm normal heart sounds S1 and S2 no murmurs, gallops, or rubs GI : normal to inspection, normal bowel sounds, soft, non tender, non distended, no organomegaly Back/Spine/ no CVA tenderness Thoracic/Lumbar Spine: no tenderness or deformities Skin no rashes or lesions Neuro: patient alert oriented x 4 and no meningeal signs, Cranial Nerves: CN's II-XI intact bilaterally, Cognition: normal cognition, Speech: speech normal, Gait: normal gait, Depp tendon reflexes normal 2+ muscle strength 5/5 bilaterally Extremities, no edema, full range of motion, normal strength Course Vital Signs Vital signs: Vital Signs Temperature 37.2 C 03/09/25 13:56 Pulse 105 H 03/09/25 13:56 Respiratory Rate 18 03/09/25 13:56 Blood Pressure 116/78 03/09/25 13:56 Pulse Oximetry 95 03/09/25 13:56 Temperature 37.2 C 03/09/25 13:56 Temperature Source Oral 03/09/25 13:56 Pulse 105 H 03/09/25 13:56 Respiratory Rate 18 03/09/25 13:56 Blood Pressure 116/78 03/09/25 13:56 Blood Pressure Position Sitting 03/09/25 13:56 Pulse Oximetry 95 03/09/25 13:56 Oxygen Delivery Method Room Air 03/09/25 13:56 Oxygen Flow Rate 0 03/09/25 13:56 Pain Level 5 03/09/25 13:56 Medical Decision Making MDM: Summary: Patient most likely with a blocked salivary duct from the parotid gland probably from a salivary stone. I tried to milk the parotid but I will give her sour drops and prophylactic clindamycin but most likely this is sialolithiasis. Advised patient to seek ENT if not better or if swelling or fever to return to the emergency department. She has an appointment tomorrow with her primary care physician. Data Review Analysis All the data on this patient was reviewed by me including laboratory and imaging studies as well as bedside studies performed by me Independent review of Studies Imaging Lab: Risk Stratification: Patient most likely with sialolithiasis will be discharged home on prophylactic antibiotics and sour candy Differential Diagnosis: 1. Sialolithiasis 2. Parotiditis 3. Mumps 4. 5. Consultants: Shared disposition: Patient assess disposition will seek care tomorrow if not return to the ED if not better Impression: PFSH All Active Problems Parotid sialolithiasis (Acute) Bronchitis (Acute) Cubital tunnel syndrome, bilateral (Chronic) s/p left ECTR and cubital tunnel decompression DOS: 10/12/24 s/p right ECTR and cubital tunnel decompression DOS: 11/10/24 Well woman exam without gynecological exam (Acute) Bilateral carpal tunnel syndrome (Acute) s/p left ECTR and cubital tunnel decompression DOS: 10/12/24 Breast cyst (Acute) Skin, small abscess. Amenorrhea (Acute) Muscle spasm (Acute) Chronic upper back pain (Acute) Chronic neck pain (Acute) Muscle spasms that pull her face down. Status post dilation and curettage (Acute) Hysteroscopy, dilation and curettage with MyoSure removal of endometrial polyp 01/22/2023 Muscle pain (Acute) sees pain management Muscle pain, myofascial (Acute) Adhesive capsulitis of left shoulder (Acute) Chronic obstructive lung disease (Chronic) Chronic fatigue syndrome (Acute) Insomnia disorder (Acute) Mild recurrent major depression (Acute) Tobacco user (Acute) less than pack/day Anxiety (Chronic) Weight gain (Acute) Dislocation of left shoulder joint (Acute) Superior labrum [id number] (SLAP) tear of left shoulder (Acute) Bursitis of left shoulder (Acute) Medical History Loss of teeth due to extraction 2018 Idiopathic hypersomnia COVID-19 Surgical History S/P myomectomy History of arthroscopy of left shoulder (05/17/22) Family History Mother Depression Father , 60 No problems noted. Sister No problems noted. Son No problems noted. Son No problems noted. Social History Smoking/Tobacco Use Status: Current every day Tobacco Type: cigarettes Tobacco: How many years used: 24 Quit status: has quit before Second Hand Exposure: Yes Smoking risk assessment performed?: Yes Alcohol Intake: current Alcohol Intake frequency: a few times a month Alcohol type: beer, wine and hard liquor Drug use: Daily Substance use type: marijuana Counseling given: No Caregiver/Support person: No Household members: significant other and children Housing: house Communication Needs: None Do you need help understanding health information?: Rarely Pets and animals: Yes Pets and animals: cat(s), dog(s), fish, snake(s) and other Sexually active: Yes Do you think of yourself as: straight/heterosexual Current gender identity: female What is your relationship status?: living with partner How often do you talk on the phone with friends or family?: once per week How often do you get together with friends or relatives?: never Do you belong to any clubs or organized social groups?: no Panel score (0-1 are the most socially isolated patients): 1 What type of physical activity do you participate in: walking Duration: 15-30 minutes/day Frequency: 3-4 times per week Lori/Jainism: Kristel Special lori needs: No Seatbelt use: always Helmet use: Yes Helmet use: always Drive intox or ride w/intox driver examiner: No Do you feel safe at home: Yes Do you feel safe in your relationship?: Yes History History 5 Para 2 Hx # Term Pregnancies 2 Multiple births Hx # Pregnancies Ectopic pregnancies AB induced Hx Number of Living Children 2 AB spontaneous
[2025-03-09 14:32] VITALS: PULSE 102; O2SAT 97
== END 2025-03-09 15:14 | disposition home or self-care (01) ==
PROVIDERS: Emergency Provider Emergency Medicine Emergency Medical Services; PCP Nurse Practitioner Family
DX: K11.5 Sialolithiasis (principal)
CPT/HCPCS: 99283 ×2

== ENCOUNTER 2025-04-01 05:15 | Outpatient (CLI) | payer MEDICAID, SELFPAY ==
[2025-04-01 08:50] LABS: Hemoglobin A1C 5.7 % (<5.7)
[2025-04-01 09:04] LABS: Calculated LDL 145 mg/dL (<100); Cholesterol 231 mg/dL (<200); HDL Cholesterol 50 mg/dL (>or=50); TSH (W/Ref FT4) 3.47 uIU/mL (0.36-3.74); Triglyceride 181 mg/dL (<150)
== END 2025-04-01 05:16 | disposition home or self-care (01) ==
LOC: LBO 05:15
PROVIDERS: PCP Nurse Practitioner Family; Visit Provider Nurse Practitioner Family
DX: E03.9 Hypothyroidism, unspecified (principal); Z13.220 Encounter for screening for lipoid disorders; Z13.1 Encounter for screening for diabetes mellitus
CPT/HCPCS: 36415; 80061; 83036; 84443

== ENCOUNTER 2025-04-12 03:36 | Outpatient (CLI) | payer MEDICAID, SELFPAY ==
--- NOTE | 2025-04-12 08:10 | DI.MAMMO_ITS ---
Exam(s) MAMMO SCREENING EXAM: MAMMO SCREENING CLINICAL HISTORY: screening,z12.39 TECHNIQUE: Bilateral full field digital CC and MLO mammographic images were obtained with 3D tomosynthesis and utilizing computer aided detection (CAD). COMPARISON: Comparison is made with prior examinations. FINDINGS: Masses/Architectural Distortion: No suspicious masses or areas of architectural distortion are present. Microcalcifications: No suspicious pleomorphic-type are seen. Skin Thickening/Nipple Retraction: None. IMPRESSION: 1. No significant interval change with no specific features of malignancy noted. 2. Unless there is more urgent need, screening mammography is recommended, as per [place] [employer] guidelines. BI-RADS Category 1 - Negative Breast Density - Category B - There are scattered areas of fibroglandular density. Breast density Category C or D implies that the patient has dense breast tissue. Dense breast tissue can make it harder to find cancer on a mammogram. Dense breast tissue is also associated with an increased risk of breast cancer. This information about the result of the mammogram report was provided to the patient to raise their awareness. Use this report when you speak with the patient about their risks for breast cancer, which includes their family history. At that time, you may recommend additional screening tests (Ultrasound or MRI) as these tests may add significant information. A negative radiographic report should not delay biopsy if a dominant or clinically suspicious mass is present. Up to ten percent of cancers are not identified on mammography. A negative report may reinforce clinical impression. Adenosis and dense breasts may obscure an underlying neoplasm. False positive reports average 6 to 10%. Patient will receive a letter notifying them of these results.
== END 2025-04-12 03:56 ==
LOC: DI 03:36
PROVIDERS: PCP Nurse Practitioner Family; Visit Provider Nurse Practitioner Family
DX: Z12.31 Encounter for screening mammogram for malignant neoplasm of breast (principal)
CPT/HCPCS: 77063; 77067

== ENCOUNTER 2025-04-12 11:40 | Outpatient (REF) | payer MEDICAID, SELFPAY ==
--- NOTE | 2025-04-12 11:15 | PAPFT_PTH ---
PATIENT: Alcira Saldana LOC: [facility] U#:[id number] AGE/SX: 39/F ROOM: RE04/12/[address]: Susan Fabian MD : [id number] BED: DIS: 04/12/2025 SPEC #: [id number] RECD: 04/12/25 12:48 STATUS: CAL [place] #: [id number] DENISE: 04/12/25 11:[address]: Estuardo RUSSELL,[place] DEPT: [facility] Cytology RECD BY: Kristina Mccartney ENTERED: 04/12/25 12:48 SP TYPE: PAPFT JUDE DR: Chris Merritt NP Tissues: 1 - CX/ENDOCX FOR PAP SMEARS Procedures: PAP THIN PREP/UVM Screening HPV DNA PROBE Comments: [id number] (HPV 16 & 18/45) (CHLAMYDIA/GC)
[2025-04-13 13:29] LABS: Chlamydia Result Negative (Negative); GC Result Negative (Negative)
== END 2025-04-12 11:41 | disposition home or self-care (01) ==
LOC: LBN 11:40
PROVIDERS: Nurse Practitioner Women's Health; PCP Nurse Practitioner Family; Visit Provider Obstetrics & Gynecology
DX: N89.8 Other specified noninflammatory disorders of vagina (principal); Z12.4 Encounter for screening for malignant neoplasm of cervix
CPT/HCPCS: 87491; 87591; 88142; 87480; 87510; 87624; 87660

== ENCOUNTER → 2025-07-14 00:20 | Outpatient (CLI) | payer MEDICAID, SELFPAY ==
--- NOTE | 2025-07-14 11:00 | DI.MRI_ITS ---
Exam(s) MR LUMBAR SPINE WO EXAM: MR LUMBAR SPINE WO CLINICAL HISTORY: Worsening pain lt leg,chronic bilat low back pain,m54.50,g89.29. TECHNIQUE: Multiplanar multisequence MRI of the Lumbar spine was performed. COMPARISON: No exams were available for comparison FINDINGS: Bones: The last intervertebral disc space is designated the L5/S1 level for the numbering purpose of this examination. The vertebral body heights are well maintained. Alignment is satisfactory. There are degenerative endplate signal changes at L4-L5. Cord: It is of normal size and signal intensity. T12-L1: No disc herniations or bulges are present. No central spinal canal or neural foraminal stenosis. L1-2: No disc herniations or bulges are present. No central spinal canal or neural foraminal stenosis. L2-3: No disc herniations or bulges are present. No central spinal canal or neural foraminal stenosis. L3-4: No disc herniations or bulges are present. No central spinal canal or neural foraminal stenosis. L4-5: There is a diffuse disc bulge at this level. There is a diffuse disc bulge which extends into the neural foramen bilaterally. There is no significant central spinal canal stenosis. There is moderate bilateral neural foraminal stenosis. L5-S1: No disc herniations or bulges are present. No central spinal canal or neural foraminal stenosis. Soft tissues: The visualized SI joints and sacrum are well maintained. The paraspinal soft tissues are unremarkable. Perineural root sleeve cysts are seen at S2. IMPRESSION: Degenerative changes at L4-L5 with a diffuse disc bulge causing moderate bilateral neural foraminal stenosis. DATA REPOSITORY:
== END ==
LOC: DI 00:20
PROVIDERS: PCP Nurse Practitioner Family; Visit Provider Nurse Practitioner Family
DX: M54.50 Low back pain, unspecified (principal); G89.29 Other chronic pain; M48.061 Spinal stenosis, lumbar region without neurogenic claudication
CPT/HCPCS: 72148